=== PATIENT | male | born 1940 | race Caucasian/White ===

== ENCOUNTER 2017-01-07 18:31 | Inpatient (IN) | payer MEDICARE ==
[~2017-01-07] VITALS: Ht 175.3 cm; Wt 107.5 kg
[~2017-01-07 18:31] MED LIST: ACET325T9 PO; ASPI81TA9 PO; BISA10SU15 RC; DIGO125T PO; DOCU100T5 PO; FERR325T20 PO; LEVO50TA5 PO; LIDO700A4 TP; OXYC-323 PO; PANT40TA5 PO; PRAV40TA2 PO; PROC5TAB14 PO; TRAM50TA PO
[2017-01-07 19:16] LABS: BASO % 0 % (0-3); EOS % 0 % (0-3); HEMATOCRIT 52.7 % (39.0-53.0); HEMOGLOBIN 17.5 g/dL (13.0-17.5); LYMPH # 2.3 x10^3/uL (1.0-4.8); LYMPH % 12 % (24-48); MEAN CORPUSCULAR HEMOGLOBIN 29 pg (25-35); MEAN CORPUSCULAR HGB CONC 33 g/dL (31-37); MEAN CORPUSCULAR VOLUME 86 fL (79-100); MONO % 12 % (0-9); NEUT % 76 % (31-73); PLATELET COUNT 372 x10^3/uL (140-400); RED BLOOD COUNT 6.13 x10^6/uL (4.30-5.70); RED CELL DISTRIBUTION WIDTH 14.1 % (11.5-14.5); WHITE BLOOD COUNT 18.8 x10^3/uL (4.0-11.0)
[2017-01-07] MEDS ORDERED: IV NORMAL SALINE 500ML BAG 500 ML IV ONE (19:30)
[2017-01-07] MEDS ORDERED: ONDANSETRON PF 4 MG/2 ML VIAL. IV PRN ×2 (19:30→21:15)
[2017-01-07 19:34] LABS: CALCIUM 10.3 mg/dL (8.5-10.1); CREATININE 2.1 mg/dL (0.7-1.3); GFR 30.6; POTASSIUM 4.2 mmol/L (3.5-5.1)
[2017-01-07 19:41] LABS: ALBUMIN 4.4 g/dL (3.4-5.0); DIRECT BILIRUBIN 0.3 mg/dL (0.0-0.2); TOTAL BILIRUBIN 1.3 mg/dL (0.2-1.0); TOTAL PROTEIN 9.1 g/dL (6.4-8.2)
[2017-01-07 19:46] LABS: % BASOS 4 % (0-3)
[2017-01-07 19:48] LABS: PLT ESTIMATE INCREASED (ADEQUATE); POLYCHROMASIA SLIGHT; SCHISTOCYTES OCC; TOXIC GRANULATION SLIGHT
[2017-01-07 20:12] LABS: OBC FLU VALID
--- NOTE | 2017-01-07 20:13 | PHYS DOC ---
Past Medical History Past Medical History: CAD, High Cholesterol, Other Additional Past Medical Histor: Thyroid Past Surgical History: Coronary Bypass Surgery, Tonsillectomy, Other Additional Past Surgical Histo: Hernia, Adenoids Alcohol Use: None Drug Use: None Adult General Chief Complaint Chief Complaint: NAUSEA/VOMITING/DIARRHA HPI HPI 77-year-old male presenting to the emergency department with nausea vomiting for the last few days. He reports feeling generally weak. His vomiting is nonbilious. He describes generalized cramping abdominal pain without a focus. He denies fevers chills. He denies chest pain or shortness of breath. Onset 24- 48 hours. Duration intermittent. No alleviating or exacerbating factors present. No specific timing. Review of systems is negative for chest pain shortness of breath fevers or chills. All other review of systems is negative unless otherwise noted in history of present illness. Review of Systems Review of Systems SEE ABOVE. Current Medications Current Medications Current Medications Medications (Trade) Dose Ordered Sig/Rod Start Time Stop Time Status Last Admin Dose Admin Ondansetron HCl (Zofran) 4 mg PRN Q30MIN PRN 01/07/17 19:30 01/07/17 19:31 4 MG Sodium Chloride (Iv Sodium Chloride 0.9% 500ml Bag) 500 ml @ 500 mls/hr 1X ONCE 01/07/17 19:30 01/07/17 20:29 01/07/17 19:31 500 MLS/HR Allergies Allergies Allergies Coded Allergies Type Severity Reaction Last Updated Verified No Known Drug Allergies 01/07/17 No Physical Exam Physical Exam Constitutional: Well developed, well nourished, no acute distress, non-toxic appearance. HENT: Normocephalic, atraumatic, bilateral external ears normal, oropharynx moist, no oral exudates, nose normal. [] Eyes: PERRLA, EOMI, conjunctiva normal, no discharge. Neck: Normal range of motion, no tenderness, supple, no stridor. [] Cardiovascular:Heart rate regular rhythm, no murmur [] Lungs & Thorax: Bilateral breath sounds clear to auscultation Abdomen: Bowel sounds normal, soft, no tenderness, no masses, no pulsatile masses. [] Skin: Warm, dry, no erythema, no rash. Back: No tenderness, no CVA tenderness. Extremities: No tenderness, no cyanosis, no clubbing, ROM intact, no edema. [] Neurologic: Alert and oriented X 3, normal motor function, normal sensory function, no focal deficits noted. [] Psychologic: Affect normal, judgement normal, mood normal. [] Current Patient Data Vital Signs Vital Signs Date Time Temp Pulse Resp B/P Pulse Ox O2 Delivery O2 Flow Rate FiO2 01/07/17 18:50 96.8 99 34 162/92 93 Room Air 96.8 Lab Values Laboratory Tests Test 01/07/17 18:56 White Blood Count 18.8x10^3/uL (4.0-11.0) H Red Blood Count 6.13x10^6/uL (4.30-5.70) H Hemoglobin 17.5g/dL (13.0-17.5) Hematocrit 52.7% (39.0-53.0) Mean Corpuscular Volume 86fL (79-100) Mean Corpuscular Hemoglobin 29pg (25-35) Mean Corpuscular Hemoglobin Concent 33g/dL (31-37) Red Cell Distribution Width 14.1% (11.5-14.5) Platelet Count 372x10^3/uL (140-400) Neutrophils (%) (Auto) 76% (31-73) H Lymphocytes (%) (Auto) 12% (24-48) L Monocytes (%) (Auto) 12% (0-9) H Eosinophils (%) (Auto) 0% (0-3) Basophils (%) (Auto) 0% (0-3) Neutrophils # (Auto) 14.3x10^3uL (1.8-7.7) H Lymphocytes # (Auto) 2.3x10^3/uL (1.0-4.8) Monocytes # (Auto) 2.2x10^3/uL (0.0-1.1) H Eosinophils # (Auto) 0.0x10^3/uL (0.0-0.7) Basophils # (Auto) 0.0x10^3/uL (0.0-0.2) Segmented Neutrophils % 73% (35-66) H Lymphocytes % 16% (24-48) L Monocytes % 6% (0-10) Basophils % 4% (0-3) H Metamyelocytes % 1% (0-0) H Toxic Granulation Slight Platelet Estimate Increased (ADEQUATE) Platelet Clumps, EDTA Present Giant Platelets Occ Polychromasia Slight Schistocytes Occ Sodium Level 131mmol/L (136-145) L Potassium Level 4.2mmol/L (3.5-5.1) Chloride Level 91mmol/L (98-107) L Carbon Dioxide Level 25mmol/L (21-32) Anion Gap 15 (6-14) H Blood Urea Nitrogen 35mg/dL (8-26) H Creatinine 2.1mg/dL (0.7-1.3) H Estimated GFR (Cockcroft-Gault) 30.6 Glucose Level 222mg/dL (70-99) H Calcium Level 10.3mg/dL (8.5-10.1) H Total Bilirubin 1.3mg/dL (0.2-1.0) H Direct Bilirubin 0.3mg/dL (0.0-0.2) H Aspartate Amino Transferase (AST) 48U/L (15-37) H Alanine Aminotransferase (ALT) 74U/L (16-63) H Alkaline Phosphatase 70U/L (46-116) Troponin I Quantitative < 0.017ng/mL (0.000-0.055) UM-Sbi-F-Type Natriuretic Peptide 1023pg/mL (0-449) H Total Protein 9.1g/dL (6.4-8.2) H Albumin 4.4g/dL (3.4-5.0) Lipase 561U/L (73-393) H Laboratory Tests 01/07/17 18:56 Laboratory Tests 01/07/17 18:56 EKG EKG [] EKG shows sinus tachycardia. Intervals within normal limits. ST segments congruent. Not suggestive of ACS. Radiology/Procedures Radiology/Procedures Poor lung volumes on chest film. No obvious pneumothorax or pulmonary infiltrate present. [] Course & Med Decision Making Course & Med Decision Making Pertinent Labs and Imaging studies reviewed. (See chart for details) 77-year-old male presenting to the emergency department today with nausea vomiting and diarrhea. On examination the patient was tachycardic and afebrile. Mildly low saturation on room air. Hypertensive present. Physical exam otherwise showed nontender abdomen. IV fluids administered after IV established. Blood work obtained which showed leukocytosis with elevation in BUN and creatinine to bili low sodium elevated proBNP mildly elevated lipase. On reevaluation he was feeling a little bit better however it appears that he will benefit from more fluid resuscitation and further valuation workup and care in our hospital system. The patient was subsequently admitted. Dragon Disclaimer Dragon Disclaimer This electronic medical record was generated, in whole or in part, using a voice recognition dictation system. Departure Departure Impression: Primary Impression: Nausea vomiting and diarrhea Additional Impressions: Lactic acidosis Dehydration Uremia Disposition: ADMITTED INPATIENT Admitting Physician: Chace Bradshaw Condition: STABLE Referrals: SU RAI Jr, MD (PCP) Problem Qualifiers KASI STRICKLAND MD Jan 07, 2017 20:13
[2017-01-07 20:40] LABS: BILIRUBIN,URINE SMALL (NEG); GLUCOSE,URINE NEGATIVE (NEG); NITRITE,URINE NEGATIVE (NEG); PROTEIN,URINE NEGATIVE (NEG-TRACE); UROBILINOGEN,URINE 0.2 mg/dL (0.2 mg/dL)
[2017-01-07 20:50] LABS: BACTERIA,URINE 0 /HPF (0-FEW); RBC,URINE 0 /HPF (0-2); SQUAMOUS EPITHELIAL CELL,UR OCC /LPF; WBC,URINE OCC /HPF (0-4)
--- NOTE | 2017-01-07 20:59 | RAD ---
PQRS STATEMENT One or more of the following individualized dose reduction techniques were utilized for this study: 1.Automated exposure control. 2.Adjustment of the mA and/orkVaccording to patient size. 3.Use of iterative reconstruction technique CT ABDOMEN/PELVIS Indication:LOW ABD PAIN, HX UMBILICA HERNIA SX YEARS AGO Reason: abd pain / Spl. Instructions: BAD LABS, C- 2.1 / History: Technique: Multiple contiguous axial images were obtained through the abdomen and pelvis. Coronal reformations were created. Findings: The heart size is normal. There are dense coronary artery calcifications. Mild fibrotic changes are noted in the lung bases. Evaluation of the abdominal viscera is limited in the absence of IV contrast.The liver and spleen are normal in size. The gallbladder is nondistended. The pancreas, and adrenal glands are within normal limits. The kidneys are unremarkable. There is no abdominopelvic ascites. Abdominal aorta is normal in caliber. The stomach is significantly dilated, as is the proximal small bowel. There appears to be a transition point in the right lower quadrant to decompressed ilium. There is no pneumoperitoneum or ascites. The appendix is normal. Urinary bladder is within normal limits. No destructive osseus lesions are identified. Impression: - Findings consistent with small bowel obstruction. No evidence for hollow viscus rupture. - Normal appendix. - Dense coronary artery disease. Electronically signed by: Amadeo Last (Jan 07, 2017 20:57:55)
[2017-01-07] MEDS ORDERED: IV NORMAL SALINE 1000ML BAG 1,000 ML IV SCH (21:08)
[2017-01-07 21:15] VITALS: BP 151/90
[2017-01-07] MEDS ORDERED: PIP/TAZO PER PHARMACY MC PRN (21:15)
[2017-01-07] MEDS ORDERED: IV NORMAL SALINE 500ML BAG 500 ML IV PRN (21:15)
[2017-01-07] MEDS ORDERED: MORPHINE SULFATE 2 MG/ML DISP.SYRIN. IV PRN (21:15)
[2017-01-07] MEDS ORDERED: ONDA4TAB10 SL (21:29)
[2017-01-07 21:35] LABS: INR 2.2 (0.8-1.1)
[2017-01-07] MEDS ORDERED: VANCOMYCIN 2 GM in IV NORMAL SALINE 500ML BAG 500 ML IV ONE (22:00)
[2017-01-07] MEDS ORDERED: IV NORMAL SALINE 1000ML BAG 1,000 ML IV PRN (22:33)
[2017-01-07] MEDS: IV NORMAL SALINE 1000ML BAG 1,000 ML IV SCH (22:45)
[2017-01-07] MEDS: PIPERACILLIN/TAZOBACTAM 2.25 GM in IV NORMAL SALINE 50ML 50 ML IV SCH (22:46)
[2017-01-07 23:00] VITALS: BP 143/93
[2017-01-08] VITALS (24 sets, daily range): BP systolic 0–168; BP diastolic 0–110
[2017-01-08] MEDS: VANCOMYCIN PER PHARMACY MC PRN ×2 (00:20→13:47)
--- NOTE | 2017-01-08 00:23 | ACF ---
Admission Forms Criteria Admission Criteria Met?: Pending CHRISTIAN YOO Jan 08, 2017 00:23 KASI STRICKLAND MD Jan 13, 2017 23:29
[2017-01-08] MEDS ORDERED: IV NORMAL SALINE 1000ML BAG 1,000 ML IV ONE (03:00)
[2017-01-08] MEDS ORDERED: IV NORMAL SALINE 1000ML BAG 500 ML IV ONE (04:00)
[2017-01-08 04:19] LABS: BASO % 0 % (0-3); EOS % 0 % (0-3); HEMATOCRIT 48.2 % (39.0-53.0); HEMOGLOBIN 15.9 g/dL (13.0-17.5); LYMPH # 1.8 x10^3/uL (1.0-4.8); LYMPH % 11 % (24-48); MEAN CORPUSCULAR HEMOGLOBIN 29 pg (25-35); MEAN CORPUSCULAR HGB CONC 33 g/dL (31-37); MEAN CORPUSCULAR VOLUME 87 fL (79-100); MONO % 14 % (0-9); NEUT % 75 % (31-73); PLATELET COUNT 303 x10^3/uL (140-400); RED BLOOD COUNT 5.56 x10^6/uL (4.30-5.70); RED CELL DISTRIBUTION WIDTH 14.3 % (11.5-14.5); WHITE BLOOD COUNT 16.8 x10^3/uL (4.0-11.0)
[2017-01-08 04:34] LABS: ALBUMIN 3.4 g/dL (3.4-5.0); ALBUMIN/GLOBULIN RATIO 0.9 (1.0-1.7); CALCIUM 8.6 mg/dL (8.5-10.1); CREATININE 2.1 mg/dL (0.7-1.3); GFR 30.6; POTASSIUM 3.7 mmol/L (3.5-5.1); TOTAL BILIRUBIN 1.3 mg/dL (0.2-1.0); TOTAL PROTEIN 7.3 g/dL (6.4-8.2)
[2017-01-08] MEDS: PIPERACILLIN/TAZOBACTAM 2.25 GM in IV NORMAL SALINE 50ML 50 ML IV SCH ×2 (05:06→15:16)
[2017-01-08] MEDS: IV NORMAL SALINE 1000ML BAG 1,000 ML IV SCH (06:12)
--- NOTE | 2017-01-08 06:42 | EKG ---
[facility] [address] [place] [address] Test Date: 2017-01-07 Test Time: 19:28:15 Pat Name: ANA LILIA HAYES Department: Room: 512 1 Gender: M [employer] Machine Tender: PERICO ER : 1940 Requested By: KASI STRICKLAND Order Number: [id number] Reading MD: Yvette Jackson Measurements Intervals Williams Rate: 99 P: 29 WY: 142 QRS: -15 QRSD: 96 T: 83 QT: 362 QTc: 470 Interpretive Statements SINUS RHYTHM LEFT ATRIAL ABNORMALITY LEFTWARD AXIS QRS(T) CONTOUR ABNORMALITY CONSISTENT WITH ANTEROSEPTAL INFARCT AGE UNDETERMINED CONSISTENT WITH INFERIOR INFARCT PROBABLY OLD ST & T ABNORMALITY, CONSIDER HIGH LATERAL ISCHEMIA OR LEFT VENTRICULAR STRAIN ABNORMAL ECG Electronically Signed On 01-12-2017 15:02:39 [employer]ONE SETTER by Yvette Jackson
--- NOTE | 2017-01-08 08:07 | RAD ---
Indication weak and shortness of breath. A single view of the chest was obtained. Comparison is made to a prior examination December 17, 2014. The level of inspiratory effort is suboptimal. Heart and pulmonary vessels are within normal limits. A focal infiltrate is not seen. Significant pleural fluid is not present and there is no pneumothorax. Postoperative changes are noted. IMPRESSION: Suboptimal inspiratory effort. No definite acute or focal process seen in the chest
[2017-01-08] MEDS ORDERED: EPINEPHRINE VIAL 4 MG in IV NORMAL SALINE 250ML 250 ML IV ONE (09:30)
--- NOTE | 2017-01-08 09:34 | PDOC1 ---
History and Physical Date of Admission Date of Admission DATE: 01/08/17 TIME: 09:34 Past Medical History Cardiovascular: CAD, HTN, LA, Other GI: Constipation Past Surgical History Past Surgical History: Other Family History Family History: Family History Unknown Social History ALCOHOL: none Drugs: None Current Problem List Problem List Problems Medical Problems: (1) Dehydration Status: Acute (2) Lactic acidosis Status: Acute (3) Nausea vomiting and diarrhea Status: Acute (4) Uremia Status: Acute Problems: Current Medications Current Medications Current Medications Sodium Chloride (Iv Sodium Chloride 0.9% 500ml Bag) 500 ml @ 500 mls/hr 1X ONCE IV Last administered on 01/07/17 19:31; Start 01/07/17 at 19:30; Stop at 20:29; Status DC Ondansetron HCl (Zofran) 4 mg PRN Q30MIN PRN IV NAUSEA/VOMITING Last administered on 01/07/17 19:31; Start 01/07/17 at 19:30; Stop 01/07/17 at 23:00; Status DC Ondansetron HCl (Zofran) 4 mg PRN Q8HRS PRN IV NAUSEA/VOMITING Last administered on 01/08/17 00:42; Start 01/07/17 at 21:15; Stop 01/08/17 at 21:14 Morphine Sulfate 2 mg 2 mg PRN Q2HR PRN IV SEVERE PAIN Last administered on 01/07 23:36; Start 01/07/17 at 21:15; Stop 01/08/17 at 21:14 Sodium Chloride (Iv Sodium Chloride 0.9% 1000ml Bag) 1,000 ml @ 125 mls/hr Q8H IV Last administered on 01/08/17 06:12; Start 01/07/17 at 21:04; Stop 01/08/17 at 21:03 Vancomycin HCl (Vanco Per Pharmacy) 1 each PRN DAILY PRN MC SEE COMMENTS Last administered on 01/08/17 00:20; Start 01/07/17 at 21:15 Piperacillin Sod/ Tazobactam Sod 1 each 1 each PRN DAILY PRN MC SEE COMMENTS; Start 01/07/17 at 21:15 Vancomycin HCl 2 gm/Sodium Chloride 500 ml @ 250 mls/hr 1X ONCE IV Last administered on 2/7/17at 23:35; Start 01/07/17 at 22:00; Stop 01/07/17 at 23:59; Status DC Piperacillin Sod/ Tazobactam Sod 2.25 gm/Sodium Chloride 50 ml @ 100 mls/hr Q6HRS IV Last administered on 01/08/17 05:06; Start 01/07/17 at 21:30 Sodium Chloride 1,000 ml @ 765 mls/hr Q1H19M IV Last administered on 01/07/17 21:47; Start 01/07/17 at 21:08; Stop 01/07/17 at 22:35; Status DC Sodium Chloride 500 ml @ 1,000 mls/hr PRN Q30MIN PRN IV SEE COMMENTS; Start at 21:15 Sodium Chloride 1,000 ml @ 765 mls/hr Q1H19M PRN IV SEE COMMENTS; Start at 22:33; Status UNV Vancomycin HCl/ Sodium Chloride (Iv Sodium Chloride 0.9% 500ml Bag) 500 ml @ 250 mls/hr Q24H IV ; Start 01/08/17 at 22:00 Vancomycin HCl 1 each 1 each 1X ONCE MC ; Start 01/09/17 at 21:30; Stop 01/09/17 at 21:31 Sodium Chloride 1,000 ml @ 999 mls/hr 1X ONCE IV Last administered on 02:42; Start 01/08/17 at 03:00; Stop 01/08/17 at 04:00; Status DC Sodium Chloride (Iv Sodium Chloride 0.9% 1000ml Bag) 500 ml @ 499.445 mls/hr 1X ONCE IV Last administered on 01/08/17 02:49; Start 01/08/17 at 04:00; Stop 01/08/17 at 05:00; Status DC Active Scripts Active Reported Zofran Odt (Ondansetron) 4 Mg Tab.rapdis 1 Tab SL Q8HRS Prochlorperazine Maleate 10 Mg Tablet 25 Mg PO Q6HRS Tramadol Hcl 50 Mg Tablet 50 Mg PO Q6H PRN Levothyroxine Sodium 50 Mcg Tablet 50 Mcg PO DAILYAC Pravastatin Sodium 40 Mg Tablet 40 Mg PO DAILY Digoxin 125 Mcg Tablet 1 Tab PO DAILY Laxative Suppository (Bisacodyl) 10 Mg Supp.rect 10 Mg RC DAILY Aspirin Ec (Aspirin) 81 Mg Tablet. 1 Tab PO DAILY Allergies Allergies: Coded Allergies: No Known Drug Allergies (Unverified , 01/07/17) Vitals Vitals Vital Signs Date Time Temp Pulse Resp B/P Pulse Ox O2 Delivery O2 Flow Rate FiO2 01/08/17 03:00 96.3 112 20 154/96 92 Room Air 96.3 Labs Labs Laboratory Tests Test 01/07/17 18:56 01/07/17 19:44 01/07/17 20:12 01/07/17 20:32 White Blood Count 18.8x10^3/uL (4.0-11.0) Red Blood Count 6.13x10^6/uL (4.30-5.70) Hemoglobin 17.5g/dL (13.0-17.5) Hematocrit 52.7% (39.0-53.0) Mean Corpuscular Volume 86fL (79-100) Mean Corpuscular Hemoglobin 29pg (25-35) Mean Corpuscular Hemoglobin Concent 33g/dL (31-37) Red Cell Distribution Width 14.1% (11.5-14.5) Platelet Count 372x10^3/uL (140-400) Neutrophils (%) (Auto) 76% (31-73) Lymphocytes (%) (Auto) 12% (24-48) Monocytes (%) (Auto) 12% (0-9) Eosinophils (%) (Auto) 0% (0-3) Basophils (%) (Auto) 0% (0-3) Neutrophils # (Auto) 14.3x10^3uL (1.8-7.7) Lymphocytes # (Auto) 2.3x10^3/uL (1.0-4.8) Monocytes # (Auto) 2.2x10^3/uL (0.0-1.1) Eosinophils # (Auto) 0.0x10^3/uL (0.0-0.7) Basophils # (Auto) 0.0x10^3/uL (0.0-0.2) Segmented Neutrophils % 73% (35-66) Lymphocytes % 16% (24-48) Monocytes % 6% (0-10) Basophils % 4% (0-3) Metamyelocytes % 1% (0-0) Toxic Granulation Slight Platelet Estimate Increased (ADEQUATE) Platelet Clumps, EDTA Present Giant Platelets Occ Polychromasia Slight Schistocytes Occ Prothrombin Time 23.0SEC (11.7-14.0) Prothromb Time International Ratio 2.2 (0.8-1.1) Activated Partial Thromboplast Time 45SEC (24-38) Sodium Level 131mmol/L (136-145) Potassium Level 4.2mmol/L (3.5-5.1) Chloride Level 91mmol/L (98-107) Carbon Dioxide Level 25mmol/L (21-32) Anion Gap 15 (6-14) Blood Urea Nitrogen 35mg/dL (8-26) Creatinine 2.1mg/dL (0.7-1.3) Estimated GFR (Cockcroft-Gault) 30.6 Glucose Level 222mg/dL (70-99) Lactic Acid Level 5.6mmol/L (0.4-2.0) 5.6mmol/L (0.4-2.0) Calcium Level 10.3mg/dL (8.5-10.1) Total Bilirubin 1.3mg/dL (0.2-1.0) Direct Bilirubin 0.3mg/dL (0.0-0.2) Aspartate Amino Transf (AST/SGOT) 48U/L (15-37) Alanine Aminotransferase (ALT/SGPT) 74U/L (16-63) Alkaline Phosphatase 70U/L (46-116) Troponin I Quantitative < 0.017ng/mL (0.000-0.055) DT-Occ-M-Type Natriuretic Peptide 1023pg/mL (0-449) Total Protein 9.1g/dL (6.4-8.2) Albumin 4.4g/dL (3.4-5.0) Lipase 561U/L (73-393) Procalcitonin 0.79ng/mL (0.00-0.10) Influenza Type A Antigen Negative (NEGATIVE) Influenza Type B Antigen Negative (NEGATIVE) Urine Color Chhaya Urine Clarity Clear Urine pH 5.0 Urine Specific [place] 1.020 Urine Protein Negativemg/dL (NEG-TRACE) Urine Glucose (UA) Negativemg/dL (NEG) Urine Ketones (Stick) 15mg/dL (NEG) Urine Blood Negative (NEG) Urine Nitrite Negative (NEG) Urine Bilirubin Small (NEG) Urine Urobilinogen Dipstick 0.2mg/dL (0.2 mg/dL) Urine Leukocyte Esterase Negative (NEG) Urine RBC 0/HPF (0-2) Urine WBC Occ/HPF (0-4) Urine Squamous Epithelial Cells Occ/LPF Urine Amorphous Sediment Present/HPF Urine Bacteria 0/HPF (0-FEW) Urine Hyaline Casts Occasional/HPF Test 01/08/17 00:17 01/08/17 03:24 Lactic Acid Level 5.4mmol/L (0.4-2.0) White Blood Count 16.8x10^3/uL (4.0-11.0) Red Blood Count 5.56x10^6/uL (4.30-5.70) Hemoglobin 15.9g/dL (13.0-17.5) Hematocrit 48.2% (39.0-53.0) Mean Corpuscular Volume 87fL (79-100) Mean Corpuscular Hemoglobin 29pg (25-35) Mean Corpuscular Hemoglobin Concent 33g/dL (31-37) Red Cell Distribution Width 14.3% (11.5-14.5) Platelet Count 303x10^3/uL (140-400) Neutrophils (%) (Auto) 75% (31-73) Lymphocytes (%) (Auto) 11% (24-48) Monocytes (%) (Auto) 14% (0-9) Eosinophils (%) (Auto) 0% (0-3) Basophils (%) (Auto) 0% (0-3) Neutrophils # (Auto) 12.6x10^3uL (1.8-7.7) Lymphocytes # (Auto) 1.8x10^3/uL (1.0-4.8) Monocytes # (Auto) 2.4x10^3/uL (0.0-1.1) Eosinophils # (Auto) 0.0x10^3/uL (0.0-0.7) Basophils # (Auto) 0.0x10^3/uL (0.0-0.2) Sodium Level 134mmol/L (136-145) Potassium Level 3.7mmol/L (3.5-5.1) Chloride Level 96mmol/L (98-107) Carbon Dioxide Level 22mmol/L (21-32) Anion Gap 16 (6-14) Blood Urea Nitrogen 40mg/dL (8-26) Creatinine 2.1mg/dL (0.7-1.3) Estimated GFR (Cockcroft-Gault) 30.6 BUN/Creatinine Ratio 19 (6-20) Glucose Level 190mg/dL (70-99) Calcium Level 8.6mg/dL (8.5-10.1) Total Bilirubin 1.3mg/dL (0.2-1.0) Aspartate Amino Transf (AST/SGOT) 34U/L (15-37) Alanine Aminotransferase (ALT/SGPT) 59U/L (16-63) Alkaline Phosphatase 57U/L (46-116) Total Protein 7.3g/dL (6.4-8.2) Albumin 3.4g/dL (3.4-5.0) Albumin/Globulin Ratio 0.9 (1.0-1.7) Laboratory Tests Test 01/07/17 18:56 01/07/17 19:44 01/07/17 20:12 01/07/17 20:32 White Blood Count 18.8x10^3/uL (4.0-11.0) Red Blood Count 6.13x10^6/uL (4.30-5.70) Hemoglobin 17.5g/dL (13.0-17.5) Hematocrit 52.7% (39.0-53.0) Mean Corpuscular Volume 86fL (79-100) Mean Corpuscular Hemoglobin 29pg (25-35) Mean Corpuscular Hemoglobin Concent 33g/dL (31-37) Red Cell Distribution Width 14.1% (11.5-14.5) Platelet Count 372x10^3/uL (140-400) Neutrophils (%) (Auto) 76% (31-73) Lymphocytes (%) (Auto) 12% (24-48) Monocytes (%) (Auto) 12% (0-9) Eosinophils (%) (Auto) 0% (0-3) Basophils (%) (Auto) 0% (0-3) Neutrophils # (Auto) 14.3x10^3uL (1.8-7.7) Lymphocytes # (Auto) 2.3x10^3/uL (1.0-4.8) Monocytes # (Auto) 2.2x10^3/uL (0.0-1.1) Eosinophils # (Auto) 0.0x10^3/uL (0.0-0.7) Basophils # (Auto) 0.0x10^3/uL (0.0-0.2) Segmented Neutrophils % 73% (35-66) Lymphocytes % 16% (24-48) Monocytes % 6% (0-10) Basophils % 4% (0-3) Metamyelocytes % 1% (0-0) Toxic Granulation Slight Platelet Estimate Increased (ADEQUATE) Platelet Clumps, EDTA Present Giant Platelets Occ Polychromasia Slight Schistocytes Occ Prothrombin Time 23.0SEC (11.7-14.0) Prothromb Time International Ratio 2.2 (0.8-1.1) Activated Partial Thromboplast Time 45SEC (24-38) Sodium Level 131mmol/L (136-145) Potassium Level 4.2mmol/L (3.5-5.1) Chloride Level 91mmol/L (98-107) Carbon Dioxide Level 25mmol/L (21-32) Anion Gap 15 (6-14) Blood Urea Nitrogen 35mg/dL (8-26) Creatinine 2.1mg/dL (0.7-1.3) Estimated GFR (Cockcroft-Gault) 30.6 Glucose Level 222mg/dL (70-99) Lactic Acid Level 5.6mmol/L (0.4-2.0) 5.6mmol/L (0.4-2.0) Calcium Level 10.3mg/dL (8.5-10.1) Total Bilirubin 1.3mg/dL (0.2-1.0) Direct Bilirubin 0.3mg/dL (0.0-0.2) Aspartate Amino Transf (AST/SGOT) 48U/L (15-37) Alanine Aminotransferase (ALT/SGPT) 74U/L (16-63) Alkaline Phosphatase 70U/L (46-116) Troponin I Quantitative < 0.017ng/mL (0.000-0.055) SA-Wzj-N-Type Natriuretic Peptide 1023pg/mL (0-449) Total Protein 9.1g/dL (6.4-8.2) Albumin 4.4g/dL (3.4-5.0) Lipase 561U/L (73-393) Procalcitonin 0.79ng/mL (0.00-0.10) Influenza Type A Antigen Negative (NEGATIVE) Influenza Type B Antigen Negative (NEGATIVE) Urine Color Chhaya Urine Clarity Clear Urine pH 5.0 Urine Specific [place] 1.020 Urine Protein Negativemg/dL (NEG-TRACE) Urine Glucose (UA) Negativemg/dL (NEG) Urine Ketones (Stick) 15mg/dL (NEG) Urine Blood Negative (NEG) Urine Nitrite Negative (NEG) Urine Bilirubin Small (NEG) Urine Urobilinogen Dipstick 0.2mg/dL (0.2 mg/dL) Urine Leukocyte Esterase Negative (NEG) Urine RBC 0/HPF (0-2) Urine WBC Occ/HPF (0-4) Urine Squamous Epithelial Cells Occ/LPF Urine Amorphous Sediment Present/HPF Urine Bacteria 0/HPF (0-FEW) Urine Hyaline Casts Occasional/HPF Test 01/08/17 00:17 01/08/17 03:24 Lactic Acid Level 5.4mmol/L (0.4-2.0) White Blood Count 16.8x10^3/uL (4.0-11.0) Red Blood Count 5.56x10^6/uL (4.30-5.70) Hemoglobin 15.9g/dL (13.0-17.5) Hematocrit 48.2% (39.0-53.0) Mean Corpuscular Volume 87fL (79-100) Mean Corpuscular Hemoglobin 29pg (25-35) Mean Corpuscular Hemoglobin Concent 33g/dL (31-37) Red Cell Distribution Width 14.3% (11.5-14.5) Platelet Count 303x10^3/uL (140-400) Neutrophils (%) (Auto) 75% (31-73) Lymphocytes (%) (Auto) 11% (24-48) Monocytes (%) (Auto) 14% (0-9) Eosinophils (%) (Auto) 0% (0-3) Basophils (%) (Auto) 0% (0-3) Neutrophils # (Auto) 12.6x10^3uL (1.8-7.7) Lymphocytes # (Auto) 1.8x10^3/uL (1.0-4.8) Monocytes # (Auto) 2.4x10^3/uL (0.0-1.1) Eosinophils # (Auto) 0.0x10^3/uL (0.0-0.7) Basophils # (Auto) 0.0x10^3/uL (0.0-0.2) Sodium Level 134mmol/L (136-145) Potassium Level 3.7mmol/L (3.5-5.1) Chloride Level 96mmol/L (98-107) Carbon Dioxide Level 22mmol/L (21-32) Anion Gap 16 (6-14) Blood Urea Nitrogen 40mg/dL (8-26) Creatinine 2.1mg/dL (0.7-1.3) Estimated GFR (Cockcroft-Gault) 30.6 BUN/Creatinine Ratio 19 (6-20) Glucose Level 190mg/dL (70-99) Calcium Level 8.6mg/dL (8.5-10.1) Total Bilirubin 1.3mg/dL (0.2-1.0) Aspartate Amino Transf (AST/SGOT) 34U/L (15-37) Alanine Aminotransferase (ALT/SGPT) 59U/L (16-63) Alkaline Phosphatase 57U/L (46-116) Total Protein 7.3g/dL (6.4-8.2) Albumin 3.4g/dL (3.4-5.0) Albumin/Globulin Ratio 0.9 (1.0-1.7) VTE Prophylaxis Ordered VTE Prophylaxis Devices: Yes GAYE WHITE MD Jan 08, 2017 09:34
--- NOTE | 2017-01-08 09:42 | PDOC1 ---
History and Physical Date of Admission Date of Admission DATE: 01/08/17 TIME: 09:34 Identification/Chief Complaint Chief Complaint nausea and vomiting Source Source: Chart review, Patient History of Present Illness History of Present Illness PER ER note, a 77-year-old male admit w nausea vomiting for the last few days. felt weak CT scan showed SBO, pt did drink some sprite this AM, RN reported that he was alert, conversant, and complained of back pain and abd bloating this AM, he was 1 person assist drank some Sprite, then vomited, nausea, was found pulseless and not breathing copious fluid from nose and mouth, bed covered in vomit. Agressive suction and bagged until Dr. Aquino intubated successfull. No pulse for a few minutes, compressions, EPI, atropine for Pulse 60, fluid and bicarb, and pulse returned Past Medical History Cardiovascular: CAD, HTN, [place], Other GI: Constipation Past Surgical History Past Surgical History: Other Family History Family History: Family History Unknown Social History ALCOHOL: none Drugs: None Current Problem List Problem List Problems Medical Problems: (1) Dehydration Status: Acute (2) Lactic acidosis Status: Acute (3) Nausea vomiting and diarrhea Status: Acute (4) Uremia Status: Acute Problems: Current Medications Current Medications Current Medications Sodium Chloride (Iv Sodium Chloride 0.9% 500ml Bag) 500 ml @ 500 mls/hr 1X ONCE IV Last administered on 01/07/17 19:31; Start 01/07/17 at 19:30; Stop at 20:29; Status DC Ondansetron HCl (Zofran) 4 mg PRN Q30MIN PRN IV NAUSEA/VOMITING Last administered on 01/07/17 19:31; Start 01/07/17 at 19:30; Stop 01/07/17 at 23:00; Status DC Ondansetron HCl (Zofran) 4 mg PRN Q8HRS PRN IV NAUSEA/VOMITING Last administered on 01/08/17 00:42; Start 01/07/17 at 21:15; Stop 01/08/17 at 21:14 Morphine Sulfate 2 mg 2 mg PRN Q2HR PRN IV SEVERE PAIN Last administered on 01/07 23:36; Start 01/07/17 at 21:15; Stop 01/08/17 at 21:14 Sodium Chloride (Iv Sodium Chloride 0.9% 1000ml Bag) 1,000 ml @ 125 mls/hr Q8H IV Last administered on 01/08/17 06:12; Start 01/07/17 at 21:04; Stop 01/08/17 at 21:03 Vancomycin HCl (Vanco Per Pharmacy) 1 each PRN DAILY PRN MC SEE COMMENTS Last administered on 01/08/17 00:20; Start 01/07/17 at 21:15 Piperacillin Sod/ Tazobactam Sod 1 each 1 each PRN DAILY PRN MC SEE COMMENTS; Start 01/07/17 at 21:15 Vancomycin HCl 2 gm/Sodium Chloride 500 ml @ 250 mls/hr 1X ONCE IV Last administered on 01/07/17 23:35; Start 01/07/17 at 22:00; Stop 01/07/17 at 23:59; Status DC Piperacillin Sod/ Tazobactam Sod 2.25 gm/Sodium Chloride 50 ml @ 100 mls/hr Q6HRS IV Last administered on 01/08/17 05:06; Start 01/07/17 at 21:30 Sodium Chloride 1,000 ml @ 765 mls/hr Q1H19M IV Last administered on 01/07/17 21:47; Start 01/07/17 at 21:08; Stop 01/07/17 at 22:35; Status DC Sodium Chloride 500 ml @ 1,000 mls/hr PRN Q30MIN PRN IV SEE COMMENTS; Start at 21:15 Sodium Chloride 1,000 ml @ 765 mls/hr Q1H19M PRN IV SEE COMMENTS; Start at 22:33; Status UNV Vancomycin HCl/ Sodium Chloride (Iv Sodium Chloride 0.9% 500ml Bag) 500 ml @ 250 mls/hr Q24H IV ; Start 01/08/17 at 22:00 Vancomycin HCl 1 each 1 each 1X ONCE MC ; Start 01/09/17 at 21:30; Stop 01/09/17 at 21:31 Sodium Chloride 1,000 ml @ 999 mls/hr 1X ONCE IV Last administered on 02:42; Start 01/08/17 at 03:00; Stop 01/08/17 at 04:00; Status DC Sodium Chloride (Iv Sodium Chloride 0.9% 1000ml Bag) 500 ml @ 499.445 mls/hr 1X ONCE IV Last administered on 01/08/17t 02:49; Start 01/08/17 at 04:00; Stop 01/08/17 at 05:00; Status DC Active Scripts Active Reported Zofran Odt (Ondansetron) 4 Mg Tab.rapdis 1 Tab SL Q8HRS Prochlorperazine Maleate 10 Mg Tablet 25 Mg PO Q6HRS Tramadol Hcl 50 Mg Tablet 50 Mg PO Q6H PRN Levothyroxine Sodium 50 Mcg Tablet 50 Mcg PO DAILYAC Pravastatin Sodium 40 Mg Tablet 40 Mg PO DAILY Digoxin 125 Mcg Tablet 1 Tab PO DAILY Laxative Suppository (Bisacodyl) 10 Mg Supp.rect 10 Mg RC DAILY Aspirin Ec (Aspirin) 81 Mg Tablet.dr 1 Tab PO DAILY Allergies Allergies: Coded Allergies: No Known Drug Allergies (Unverified , 01/07/17) ROS Review of System unable Physical Exam Physical Exam unresponsive and pulsless at 0915 General: Other (pulseless) HEENT: Other (pupils reacitve, no icterus) Lungs: Other (rales, coarse, ) Abdomen: Other (distended, obese, scant bowel sounds) Extremities: No edema Skin: No rashes, No breakdown Neuro: Other Psych/Mental Status: Other (not responsive) Vitals Vitals Vital Signs Date Time Temp Pulse Resp B/P Pulse Ox O2 Delivery O2 Flow Rate FiO2 01/08/17 03:00 96.3 112 20 154/96 92 Room Air 96.3 Labs Labs Laboratory Tests Test 01/07/17 18:56 01/07/17 19:44 01/07/17 20:12 01/07/17 20:32 White Blood Count 18.8x10^3/uL (4.0-11.0) Red Blood Count 6.13x10^6/uL (4.30-5.70) Hemoglobin 17.5g/dL (13.0-17.5) Hematocrit 52.7% (39.0-53.0) Mean Corpuscular Volume 86fL (79-100) Mean Corpuscular Hemoglobin 29pg (25-35) Mean Corpuscular Hemoglobin Concent 33g/dL (31-37) Red Cell Distribution Width 14.1% (11.5-14.5) Platelet Count 372x10^3/uL (140-400) Neutrophils (%) (Auto) 76% (31-73) Lymphocytes (%) (Auto) 12% (24-48) Monocytes (%) (Auto) 12% (0-9) Eosinophils (%) (Auto) 0% (0-3) Basophils (%) (Auto) 0% (0-3) Neutrophils # (Auto) 14.3x10^3uL (1.8-7.7) Lymphocytes # (Auto) 2.3x10^3/uL (1.0-4.8) Monocytes # (Auto) 2.2x10^3/uL (0.0-1.1) Eosinophils # (Auto) 0.0x10^3/uL (0.0-0.7) Basophils # (Auto) 0.0x10^3/uL (0.0-0.2) Segmented Neutrophils % 73% (35-66) Lymphocytes % 16% (24-48) Monocytes % 6% (0-10) Basophils % 4% (0-3) Metamyelocytes % 1% (0-0) Toxic Granulation Slight Platelet Estimate Increased (ADEQUATE) Platelet Clumps, EDTA Present Giant Platelets Occ Polychromasia Slight Schistocytes Occ Prothrombin Time 23.0SEC (11.7-14.0) Prothromb Time International Ratio 2.2 (0.8-1.1) Activated Partial Thromboplast Time 45SEC (24-38) Sodium Level 131mmol/L (136-145) Potassium Level 4.2mmol/L (3.5-5.1) Chloride Level 91mmol/L (98-107) Carbon Dioxide Level 25mmol/L (21-32) Anion Gap 15 (6-14) Blood Urea Nitrogen 35mg/dL (8-26) Creatinine 2.1mg/dL (0.7-1.3) Estimated GFR (Cockcroft-Gault) 30.6 Glucose Level 222mg/dL (70-99) Lactic Acid Level 5.6mmol/L (0.4-2.0) 5.6mmol/L (0.4-2.0) Calcium Level 10.3mg/dL (8.5-10.1) Total Bilirubin 1.3mg/dL (0.2-1.0) Direct Bilirubin 0.3mg/dL (0.0-0.2) Aspartate Amino Transf (AST/SGOT) 48U/L (15-37) Alanine Aminotransferase (ALT/SGPT) 74U/L (16-63) Alkaline Phosphatase 70U/L (46-116) Troponin I Quantitative < 0.017ng/mL (0.000-0.055) GQ-Gqn-V-Type Natriuretic Peptide 1023pg/mL (0-449) Total Protein 9.1g/dL (6.4-8.2) Albumin 4.4g/dL (3.4-5.0) Lipase 561U/L (73-393) Procalcitonin 0.79ng/mL (0.00-0.10) Influenza Type A Antigen Negative (NEGATIVE) Influenza Type B Antigen Negative (NEGATIVE) Urine Color Chhaya Urine Clarity Clear Urine pH 5.0 Urine Specific [place] 1.020 Urine Protein Negativemg/dL (NEG-TRACE) Urine Glucose (UA) Negativemg/dL (NEG) Urine Ketones (Stick) 15mg/dL (NEG) Urine Blood Negative (NEG) Urine Nitrite Negative (NEG) Urine Bilirubin Small (NEG) Urine Urobilinogen Dipstick 0.2mg/dL (0.2 mg/dL) Urine Leukocyte Esterase Negative (NEG) Urine RBC 0/HPF (0-2) Urine WBC Occ/HPF (0-4) Urine Squamous Epithelial Cells Occ/LPF Urine Amorphous Sediment Present/HPF Urine Bacteria 0/HPF (0-FEW) Urine Hyaline Casts Occasional/HPF Test 01/08/17 00:17 01/08/17 03:24 Lactic Acid Level 5.4mmol/L (0.4-2.0) White Blood Count 16.8x10^3/uL (4.0-11.0) Red Blood Count 5.56x10^6/uL (4.30-5.70) Hemoglobin 15.9g/dL (13.0-17.5) Hematocrit 48.2% (39.0-53.0) Mean Corpuscular Volume 87fL (79-100) Mean Corpuscular Hemoglobin 29pg (25-35) Mean Corpuscular Hemoglobin Concent 33g/dL (31-37) Red Cell Distribution Width 14.3% (11.5-14.5) Platelet Count 303x10^3/uL (140-400) Neutrophils (%) (Auto) 75% (31-73) Lymphocytes (%) (Auto) 11% (24-48) Monocytes (%) (Auto) 14% (0-9) Eosinophils (%) (Auto) 0% (0-3) Basophils (%) (Auto) 0% (0-3) Neutrophils # (Auto) 12.6x10^3uL (1.8-7.7) Lymphocytes # (Auto) 1.8x10^3/uL (1.0-4.8) Monocytes # (Auto) 2.4x10^3/uL (0.0-1.1) Eosinophils # (Auto) 0.0x10^3/uL (0.0-0.7) Basophils # (Auto) 0.0x10^3/uL (0.0-0.2) Sodium Level 134mmol/L (136-145) Potassium Level 3.7mmol/L (3.5-5.1) Chloride Level 96mmol/L (98-107) Carbon Dioxide Level 22mmol/L (21-32) Anion Gap 16 (6-14) Blood Urea Nitrogen 40mg/dL (8-26) Creatinine 2.1mg/dL (0.7-1.3) Estimated GFR (Cockcroft-Gault) 30.6 BUN/Creatinine Ratio 19 (6-20) Glucose Level 190mg/dL (70-99) Calcium Level 8.6mg/dL (8.5-10.1) Total Bilirubin 1.3mg/dL (0.2-1.0) Aspartate Amino Transf (AST/SGOT) 34U/L (15-37) Alanine Aminotransferase (ALT/SGPT) 59U/L (16-63) Alkaline Phosphatase 57U/L (46-116) Total Protein 7.3g/dL (6.4-8.2) Albumin 3.4g/dL (3.4-5.0) Albumin/Globulin Ratio 0.9 (1.0-1.7) Laboratory Tests Test 01/07/17 18:56 01/07/17 19:44 01/07/17 20:12 01/07/17 20:32 White Blood Count 18.8x10^3/uL (4.0-11.0) Red Blood Count 6.13x10^6/uL (4.30-5.70) Hemoglobin 17.5g/dL (13.0-17.5) Hematocrit 52.7% (39.0-53.0) Mean Corpuscular Volume 86fL (79-100) Mean Corpuscular Hemoglobin 29pg (25-35) Mean Corpuscular Hemoglobin Concent 33g/dL (31-37) Red Cell Distribution Width 14.1% (11.5-14.5) Platelet Count 372x10^3/uL (140-400) Neutrophils (%) (Auto) 76% (31-73) Lymphocytes (%) (Auto) 12% (24-48) Monocytes (%) (Auto) 12% (0-9) Eosinophils (%) (Auto) 0% (0-3) Basophils (%) (Auto) 0% (0-3) Neutrophils # (Auto) 14.3x10^3uL (1.8-7.7) Lymphocytes # (Auto) 2.3x10^3/uL (1.0-4.8) Monocytes # (Auto) 2.2x10^3/uL (0.0-1.1) Eosinophils # (Auto) 0.0x10^3/uL (0.0-0.7) Basophils # (Auto) 0.0x10^3/uL (0.0-0.2) Segmented Neutrophils % 73% (35-66) Lymphocytes % 16% (24-48) Monocytes % 6% (0-10) Basophils % 4% (0-3) Metamyelocytes % 1% (0-0) Toxic Granulation Slight Platelet Estimate Increased (ADEQUATE) Platelet Clumps, EDTA Present Giant Platelets Occ Polychromasia Slight Schistocytes Occ Prothrombin Time 23.0SEC (11.7-14.0) Prothromb Time International Ratio 2.2 (0.8-1.1) Activated Partial Thromboplast Time 45SEC (24-38) Sodium Level 131mmol/L (136-145) Potassium Level 4.2mmol/L (3.5-5.1) Chloride Level 91mmol/L (98-107) Carbon Dioxide Level 25mmol/L (21-32) Anion Gap 15 (6-14) Blood Urea Nitrogen 35mg/dL (8-26) Creatinine 2.1mg/dL (0.7-1.3) Estimated GFR (Cockcroft-Gault) 30.6 Glucose Level 222mg/dL (70-99) Lactic Acid Level 5.6mmol/L (0.4-2.0) 5.6mmol/L (0.4-2.0) Calcium Level 10.3mg/dL (8.5-10.1) Total Bilirubin 1.3mg/dL (0.2-1.0) Direct Bilirubin 0.3mg/dL (0.0-0.2) Aspartate Amino Transf (AST/SGOT) 48U/L (15-37) Alanine Aminotransferase (ALT/SGPT) 74U/L (16-63) Alkaline Phosphatase 70U/L (46-116) Troponin I Quantitative < 0.017ng/mL (0.000-0.055) VB-Ycj-P-Type Natriuretic Peptide 1023pg/mL (0-449) Total Protein 9.1g/dL (6.4-8.2) Albumin 4.4g/dL (3.4-5.0) Lipase 561U/L (73-393) Procalcitonin 0.79ng/mL (0.00-0.10) Influenza Type A Antigen Negative (NEGATIVE) Influenza Type B Antigen Negative (NEGATIVE) Urine Color Chhaya Urine Clarity Clear Urine pH 5.0 Urine Specific [place] 1.020 Urine Protein Negativemg/dL (NEG-TRACE) Urine Glucose (UA) Negativemg/dL (NEG) Urine Ketones (Stick) 15mg/dL (NEG) Urine Blood Negative (NEG) Urine Nitrite Negative (NEG) Urine Bilirubin Small (NEG) Urine Urobilinogen Dipstick 0.2mg/dL (0.2 mg/dL) Urine Leukocyte Esterase Negative (NEG) Urine RBC 0/HPF (0-2) Urine WBC Occ/HPF (0-4) Urine Squamous Epithelial Cells Occ/LPF Urine Amorphous Sediment Present/HPF Urine Bacteria 0/HPF (0-FEW) Urine Hyaline Casts Occasional/HPF Test 01/08/17 00:17 01/08/17 03:24 Lactic Acid Level 5.4mmol/L (0.4-2.0) White Blood Count 16.8x10^3/uL (4.0-11.0) Red Blood Count 5.56x10^6/uL (4.30-5.70) Hemoglobin 15.9g/dL (13.0-17.5) Hematocrit 48.2% (39.0-53.0) Mean Corpuscular Volume 87fL (79-100) Mean Corpuscular Hemoglobin 29pg (25-35) Mean Corpuscular Hemoglobin Concent 33g/dL (31-37) Red Cell Distribution Width 14.3% (11.5-14.5) Platelet Count 303x10^3/uL (140-400) Neutrophils (%) (Auto) 75% (31-73) Lymphocytes (%) (Auto) 11% (24-48) Monocytes (%) (Auto) 14% (0-9) Eosinophils (%) (Auto) 0% (0-3) Basophils (%) (Auto) 0% (0-3) Neutrophils # (Auto) 12.6x10^3uL (1.8-7.7) Lymphocytes # (Auto) 1.8x10^3/uL (1.0-4.8) Monocytes # (Auto) 2.4x10^3/uL (0.0-1.1) Eosinophils # (Auto) 0.0x10^3/uL (0.0-0.7) Basophils # (Auto) 0.0x10^3/uL (0.0-0.2) Sodium Level 134mmol/L (136-145) Potassium Level 3.7mmol/L (3.5-5.1) Chloride Level 96mmol/L (98-107) Carbon Dioxide Level 22mmol/L (21-32) Anion Gap 16 (6-14) Blood Urea Nitrogen 40mg/dL (8-26) Creatinine 2.1mg/dL (0.7-1.3) Estimated GFR (Cockcroft-Gault) 30.6 BUN/Creatinine Ratio 19 (6-20) Glucose Level 190mg/dL (70-99) Calcium Level 8.6mg/dL (8.5-10.1) Total Bilirubin 1.3mg/dL (0.2-1.0) Aspartate Amino Transf (AST/SGOT) 34U/L (15-37) Alanine Aminotransferase (ALT/SGPT) 59U/L (16-63) Alkaline Phosphatase 57U/L (46-116) Total Protein 7.3g/dL (6.4-8.2) Albumin 3.4g/dL (3.4-5.0) Albumin/Globulin Ratio 0.9 (1.0-1.7) VTE Prophylaxis Ordered VTE Prophylaxis Devices: Yes VTE Pharmacological Prophylaxi: No Assessment/Plan Assessment/Plan Nausea and vomiting small bowel obstruction, NG tube ordered, lactic acidosis Acute aspiration pneumonia, pneumonitis respiratory failure causing code blue, resuscitation CAD, s/p CABG obesity, BMI 35 admitted to 512, code this AM 0915 to ICU 113 consult PULM, gen surg, GI, ID CKD 4, consult renal ICU admit, 50 min GAYE WHITE MD Jan 08, 2017 09:42
[2017-01-08] MEDS ORDERED: DEXTROSE 50% 25 GM / 50ML DISP.SYRIN. IV PRN (10:00)
--- NOTE | 2017-01-08 10:01 | PDOC2 ---
PALLIATIVE CARE Palliative Care Note Palliative Care Consult requested by Dr. Good to assist with patient post code blue and to assist with family support and goals of care Information obtained from medical record Diagnosis; admitted with dehydration, lactic acidosis, nausea, vomiting, diarrhea, uremia Patient out of bed this am with one assist. Jason Walker. Daughter Sarah here at that time. Patient found unresponsive without pulse, respirations S/P code blue--patient had vomited. no pulse, no respirations. 0920 Daughter Sarah called Intubated. Vent 100% Patient transferred to ICU post code. 1015 Family here. updated on condition. ZACHARY RIVAS Jan 08, 2017 10:01
[2017-01-08 10:23] LABS: HCO3 ABG 14 mmol/L (21-28); PO2 ABG 137 mmHg (65-108); SAT O2 ABG 97 % (92-99)
[2017-01-08 10:24] LABS: FIO2 ABG 100; PCO2 ABG 69 mmHg (35-46); PH ABG 6.93 (7.35-7.45)
[2017-01-08] MEDS ORDERED: LIDOCAINE 1% / SOD BICARB 8.4% 20 ML VIAL. IJ ONE (10:30)
--- NOTE | 2017-01-08 10:48 | PDOC ---
BRIEF OPERATIVE NOTE Post-Op Diagnosis cardiopulmonary arrest Procedure Performed L IJ central line Surgeon Carmen Anesthesia Type: Local Findings triple lumen left IJ central line Complications no immediate SHELLI SCHWARTZ MD Jan 08, 2017 10:48
[2017-01-08] MEDS ORDERED: MIDAZOLAM PREMIX 100 ML IV ONE (10:56)
--- NOTE | 2017-01-08 11:08 | RAD ---
Indication Central line placement. Single view of the chest was obtained and is compared to a study one day earlier. Postoperative changes are noted. Endotracheal tube is appropriately positioned above the daisy. Left IJ catheter is noted with its tip in the proximal SVC. There are now bilateral patchy infiltrates not seen previously. Findings likely reflect the interval development of mild pulmonary edema. Pneumonia is not entirely excluded. No pneumothorax is seen. IMPRESSION: Appropriately positioned endotracheal tube and left IJ catheter. Bilateral pulmonary infiltrates, new relative to the prior study. No pneumothorax seen
--- NOTE | 2017-01-08 11:13 | PDOC ---
Provider Note Provider Note dictated FLORES ANDERSON MD Jan 08, 2017 11:13
[2017-01-08] MEDS ORDERED: NOREPINEPHRINE 8 MG in IV NORMAL SALINE 250 ML IV PRN (11:15)
[2017-01-08] MEDS ORDERED: NOREPINEPHRINE VIAL 8 MG in IV NORMAL SALINE 250ML 250 ML IV PRN (11:15)
--- NOTE | 2017-01-08 11:19 | PDOC ---
Infectious Disease Note ROS ROS GEN: Denies fevers, chills, sweats HEENT: Denies blurred vision, sore throat CV: Denies chest pain RESP: Denies shortness of air, cough GI: Denies n/v/d NEURO: Denies confusion, dizziness MSK: Denies weakness, joint pain/swelling Vital Sign Vital Signs Vital Signs Date Time Temp Pulse Resp B/P Pulse Ox O2 Delivery O2 Flow Rate FiO2 01/08/17 09:50 96 Ventilator 01/08/17 07:00 97.9 120 20 168/110 97.9 Physical Exam PHYSICAL EXAM GENERAL: NAD, Alert HEENT: PERRL, OC/OP NECK: Supple, no JVD, no LN LUNGS: Clear HEART: S1S2, no gallop, no murmur ABD: Soft, NT, no organomegaly, no rebound EXT: No edema, no cyanosis COMMODITIES REQUIREMENTS ANALYST: Alert, oriented x 3, no focal neurologic deficit SKIN: No rash IV: ok Labs Lab Laboratory Tests Test 01/07/17 18:56 01/07/17 19:44 01/07/17 20:12 01/07/17 20:32 White Blood Count 18.8x10^3/uL (4.0-11.0) Red Blood Count 6.13x10^6/uL (4.30-5.70) Hemoglobin 17.5g/dL (13.0-17.5) Hematocrit 52.7% (39.0-53.0) Mean Corpuscular Volume 86fL (79-100) Mean Corpuscular Hemoglobin 29pg (25-35) Mean Corpuscular Hemoglobin Concent 33g/dL (31-37) Red Cell Distribution Width 14.1% (11.5-14.5) Platelet Count 372x10^3/uL (140-400) Neutrophils (%) (Auto) 76% (31-73) Lymphocytes (%) (Auto) 12% (24-48) Monocytes (%) (Auto) 12% (0-9) Eosinophils (%) (Auto) 0% (0-3) Basophils (%) (Auto) 0% (0-3) Neutrophils # (Auto) 14.3x10^3uL (1.8-7.7) Lymphocytes # (Auto) 2.3x10^3/uL (1.0-4.8) Monocytes # (Auto) 2.2x10^3/uL (0.0-1.1) Eosinophils # (Auto) 0.0x10^3/uL (0.0-0.7) Basophils # (Auto) 0.0x10^3/uL (0.0-0.2) Segmented Neutrophils % 73% (35-66) Lymphocytes % 16% (24-48) Monocytes % 6% (0-10) Basophils % 4% (0-3) Metamyelocytes % 1% (0-0) Toxic Granulation Slight Platelet Estimate Increased (ADEQUATE) Platelet Clumps, EDTA Present Giant Platelets Occ Polychromasia Slight Schistocytes Occ Prothrombin Time 23.0SEC (11.7-14.0) Prothromb Time International Ratio 2.2 (0.8-1.1) Activated Partial Thromboplast Time 45SEC (24-38) Sodium Level 131mmol/L (136-145) Potassium Level 4.2mmol/L (3.5-5.1) Chloride Level 91mmol/L (98-107) Carbon Dioxide Level 25mmol/L (21-32) Anion Gap 15 (6-14) Blood Urea Nitrogen 35mg/dL (8-26) Creatinine 2.1mg/dL (0.7-1.3) Estimated GFR (Cockcroft-Gault) 30.6 Glucose Level 222mg/dL (70-99) Lactic Acid Level 5.6mmol/L (0.4-2.0) 5.6mmol/L (0.4-2.0) Calcium Level 10.3mg/dL (8.5-10.1) Total Bilirubin 1.3mg/dL (0.2-1.0) Direct Bilirubin 0.3mg/dL (0.0-0.2) Aspartate Amino Transf (AST/SGOT) 48U/L (15-37) Alanine Aminotransferase (ALT/SGPT) 74U/L (16-63) Alkaline Phosphatase 70U/L (46-116) Troponin I Quantitative < 0.017ng/mL (0.000-0.055) ZG-Rpf-Q-Type Natriuretic Peptide 1023pg/mL (0-449) Total Protein 9.1g/dL (6.4-8.2) Albumin 4.4g/dL (3.4-5.0) Lipase 561U/L (73-393) Procalcitonin 0.79ng/mL (0.00-0.10) Influenza Type A Antigen Negative (NEGATIVE) Influenza Type B Antigen Negative (NEGATIVE) Urine Color Chhaya Urine Clarity Clear Urine pH 5.0 Urine Specific [place] 1.020 Urine Protein Negativemg/dL (NEG-TRACE) Urine Glucose (UA) Negativemg/dL (NEG) Urine Ketones (Stick) 15mg/dL (NEG) Urine Blood Negative (NEG) Urine Nitrite Negative (NEG) Urine Bilirubin Small (NEG) Urine Urobilinogen Dipstick 0.2mg/dL (0.2 mg/dL) Urine Leukocyte Esterase Negative (NEG) Urine RBC 0/HPF (0-2) Urine WBC Occ/HPF (0-4) Urine Squamous Epithelial Cells Occ/LPF Urine Amorphous Sediment Present/HPF Urine Bacteria 0/HPF (0-FEW) Urine Hyaline Casts Occasional/HPF Test 01/08/17 00:17 01/08/17 03:24 01/08/17 10:20 Lactic Acid Level 5.4mmol/L (0.4-2.0) White Blood Count 16.8x10^3/uL (4.0-11.0) Red Blood Count 5.56x10^6/uL (4.30-5.70) Hemoglobin 15.9g/dL (13.0-17.5) Hematocrit 48.2% (39.0-53.0) Mean Corpuscular Volume 87fL (79-100) Mean Corpuscular Hemoglobin 29pg (25-35) Mean Corpuscular Hemoglobin Concent 33g/dL (31-37) Red Cell Distribution Width 14.3% (11.5-14.5) Platelet Count 303x10^3/uL (140-400) Neutrophils (%) (Auto) 75% (31-73) Lymphocytes (%) (Auto) 11% (24-48) Monocytes (%) (Auto) 14% (0-9) Eosinophils (%) (Auto) 0% (0-3) Basophils (%) (Auto) 0% (0-3) Neutrophils # (Auto) 12.6x10^3uL (1.8-7.7) Lymphocytes # (Auto) 1.8x10^3/uL (1.0-4.8) Monocytes # (Auto) 2.4x10^3/uL (0.0-1.1) Eosinophils # (Auto) 0.0x10^3/uL (0.0-0.7) Basophils # (Auto) 0.0x10^3/uL (0.0-0.2) Sodium Level 134mmol/L (136-145) Potassium Level 3.7mmol/L (3.5-5.1) Chloride Level 96mmol/L (98-107) Carbon Dioxide Level 22mmol/L (21-32) Anion Gap 16 (6-14) Blood Urea Nitrogen 40mg/dL (8-26) Creatinine 2.1mg/dL (0.7-1.3) Estimated GFR (Cockcroft-Gault) 30.6 BUN/Creatinine Ratio 19 (6-20) Glucose Level 190mg/dL (70-99) Calcium Level 8.6mg/dL (8.5-10.1) Total Bilirubin 1.3mg/dL (0.2-1.0) Aspartate Amino Transf (AST/SGOT) 34U/L (15-37) Alanine Aminotransferase (ALT/SGPT) 59U/L (16-63) Alkaline Phosphatase 57U/L (46-116) Total Protein 7.3g/dL (6.4-8.2) Albumin 3.4g/dL (3.4-5.0) Albumin/Globulin Ratio 0.9 (1.0-1.7) O2 Saturation 97% (92-99) Arterial Blood pH 6.93 (7.35-7.45) Arterial Blood pCO2 at Patient Temp 69mmHg (35-46) Arterial Blood pO2 at Patient Temp 137mmHg (65-108) Arterial Blood HCO3 14mmol/L (21-28) Arterial Blood Base Excess -19mmol/L (-3-3) FiO2 100 Objective Assessment S/p Code Acute resp failure - CXR on admit clear but likely aspiration SBO - NIKO Leukocytosis ? reactive Plan Plan of Care Vanc/zosyn started 01/07 would cont Add Micafungin F/u cults/labs D/w Dr. Canas and Dr. Yenni Ball # JENNIFER MACIAS MD Jan 08, 2017 11:19
[2017-01-08] MEDS ORDERED: SODIUM BICARB ADULT 8.4% 50 MEQ/50 ML DISP.SYRIN. IV ONE ×5 (11:30→16:00)
[2017-01-08] MEDS ORDERED: ALBUMIN HUMAN 5% 500 ML IV ONE (11:30)
[2017-01-08] MEDS ORDERED: VECURONIUM BOLUS 10 MG VIAL. IV ONE ×2 (11:30→11:38)
[2017-01-08] MEDS ORDERED: MAGNESIUM SULFATE 2GM 50 ML IV PRN (11:45)
--- NOTE | 2017-01-08 11:45 | CONS ---
DATE OF CONSULTATION: ATTENDING PHYSICIAN: Dr. Bradshaw. REASON FOR CONSULTATION: Respiratory failure, ron gonzalez. HISTORY OF PRESENT ILLNESS: The patient is a 77-year-old morbidly obese male with a BMI of 35. He has a history of coronary artery disease, dyslipidemia. He has history of coronary artery bypass surgery. He presented to the Emergency Room with nausea, vomiting for a few days. He was having generalized abdominal cramping. The patient was on the floor last night. when ron gonzalez was called this am. When the ron gonzalez team arrived, they noticed massive amount of hemetemesis. He probably aspirated a lot. He was intubated by the ER physician. Arterial blood gases revealed a pH of 6.9 with a pCO2 of 69 and pO2 of 137 and a bicarbonate of 14. The patient was transferred to the Intensive Care Unit. I was consulted post ron. On arrival, the patient's blood pressure was in the 80s and heart rate was in the 150s and sinus. He also has a BUN of 40 and a creatinine of 2.1. Lactic acid 5.6. Currently, he is in shock, most likely hemorrhagic/hypovolemic shock. Currently, he is on assist control. I have increased the rate to 30 to correct his respiratory acidosis. FIO2 was down to 70% and a PEEP of 5. Chest x-ray was reviewed post-intubation. Endotracheal tube is in satisfactory position. There is development of mild infiltrates which could be related to aspiration. PAST MEDICAL HISTORY: Significant for history of coronary artery disease, history of dyslipidemia, history of morbid obesity, possible underlying SILVIA. Possible underlying COPD. PAST SURGICAL HISTORY: Coronary artery bypass, tonsillectomy, hernia and adenoids. ALLERGIES: None. CURRENT MEDICATIONS: Reviewed as listed in the MRAD including broad spectrum antibiotics, he is also on hydrocortisone. REVIEW OF SYSTEMS: Unable to obtain as the patient on the ventilator. MEDICATIONS: Reviewed as listed in the MRAD. PHYSICAL EXAMINATION: VITAL SIGNS: Blood pressure is in the 80s systolic. Pulse is in the 150s. Afebrile, pulse ox is 98% on 70% FiO2. HEENT: Sclerae nonicteric. NECK: Supple. LUNGS: With diminished breath sounds with few anterior rhonchi. CARDIOVASCULAR: With tachycardia. ABDOMEN: Markedly obese. EXTREMITIES: With no pitting edema. LABORATORY DATA: Reviewed. His BUN is 40, creatinine 2.1. His sodium 134, potassium 3.7. Lactic acid 5.6. Albumin is 3.4. Influenza panel negative. INR is 2.2. ABGs as discussed in history of present illness. White cell count 16.8, hemoglobin 15.9 and platelets are 303. IMPRESSION: 1. Acute respiratory failure secondary to code blue, most likely from hemorrhagic/ hypovolemic shock and massive aspiration. The patient was in PEA rhythm, received CPR, epinephrine and atropine. 2. Shock, most likely hemorrhagic/ hypovolemic shock. Need to closely follow hemoglobin and GI consultation. We will continue with fluid resuscitation. 3. At this point, cannot exclude the component of septic shock or bowel ischemia. 4. Acute renal failure. Could be related to hypovolemic shock and acute kidney injury. 5. Lactic acidosis, most likely from shock, but would cover with broad-spectrum antibiotics. 6. Coagulopathy with INR of 2.2. We will reverse it. 7. Marked respiratory acidosis. We will use higher ventilatory rates. Follow ABGs. RECOMMENDATIONS: 1. Continue assist control mode. Sedate the patient to synchronize his respirations with the ventilator. Follow ABGs and make necessary adjustments. 2. Broad spectrum antibiotics per Infectious Disease recommendations. 3. IV fluid resuscitation. 4. GI consult./ Surgery following 5. Follow hemoglobin closely. 6. Continue hydrocortisone. 7. Continue broad-spectrum antibiotics. 8. SCDs for Deep venous thrombosis prophylaxis. 9. Stress ulcer prophylaxis. 10. d/w all daughters 11. Discussed with Dr. Soria in Infectious Disease, discussed with RN and RT and discussed with Dr. Paniagua./ Dr Soria Critical care time 45 minutes. FLORES ANDERSON MD DR: CABRERA/ld JOB#: [id number] / [id number] GABRIEL
[2017-01-08] MEDS ORDERED: IV NORMAL SALINE 1000ML BAG 1,000 ML IV SCH (11:48)
[2017-01-08 11:55] LABS: CALCIUM 7.1 mg/dL (8.5-10.1); CREATININE 2.6 mg/dL (0.7-1.3); GFR 23.9; POTASSIUM 3.8 mmol/L (3.5-5.1)
--- NOTE | 2017-01-08 11:55 | PDOC2 ---
CONSULT Date of Consult Date of Consult DATE: 01/08/17 TIME: 11:37 Reason for Consult Reason for Consult: NIKO Referring Physician Referring Physician: Dr Good Identification/Chief Complaint Chief Complaint NV Abd pain; Now S/p Code Blue with aspiration Problems: Source Source: Chart review History of Present Illness Reason for Visit: as dictated Past Medical History Cardiovascular: CAD, HTN, OH, Other GI: Constipation Past Surgical History Past Surgical History: Other Family History Family History: Family History Unknown Social History ALCOHOL: none Drugs: None Lives: with Family Current Problem List Problem List Problems Medical Problems: (1) Dehydration Status: Acute (2) Lactic acidosis Status: Acute (3) Nausea vomiting and diarrhea Status: Acute (4) Uremia Status: Acute Current Medications Current Medications Current Medications Sodium Chloride (Iv Sodium Chloride 0.9% 500ml Bag) 500 ml @ 500 mls/hr 1X ONCE IV Last administered on 01/07/17 19:31; Start 01/07/17 at 19:30; Stop at 20:29; Status DC Ondansetron HCl (Zofran) 4 mg PRN Q30MIN PRN IV NAUSEA/VOMITING Last administered on 01/07/17 19:31; Start 01/07/17 at 19:30; Stop 01/07/17 at 23:00; Status DC Ondansetron HCl (Zofran) 4 mg PRN Q8HRS PRN IV NAUSEA/VOMITING Last administered on 01/08/17 00:42; Start 01/07/17 at 21:15; Stop 01/08/17 at 21:14 Morphine Sulfate 2 mg 2 mg PRN Q2HR PRN IV SEVERE PAIN Last administered on 01/07 23:36; Start 01/07/17 at 21:15; Stop 01/08/17 at 21:14 Sodium Chloride (Iv Sodium Chloride 0.9% 1000ml Bag) 1,000 ml @ 125 mls/hr Q8H IV Last administered on 01/08/17 06:12; Start 01/07/17 at 21:04; Stop 01/08/17 at 21:03 Vancomycin HCl (Vanco Per Pharmacy) 1 each PRN DAILY PRN MC SEE COMMENTS Last administered on 01/08/17 00:20; Start 01/07/17 at 21:15 Piperacillin Sod/ Tazobactam Sod 1 each 1 each PRN DAILY PRN MC SEE COMMENTS; Start 01/07/17 at 21:15 Vancomycin HCl 2 gm/Sodium Chloride 500 ml @ 250 mls/hr 1X ONCE IV Last administered on 01/07/17 23:35; Start 01/07/17 at 22:00; Stop 01/07/17 at 23:59; Status DC Piperacillin Sod/ Tazobactam Sod 2.25 gm/Sodium Chloride 50 ml @ 100 mls/hr Q6HRS IV Last administered on 01/08/17 05:06; Start 01/07/17 at 21:30 Sodium Chloride 1,000 ml @ 765 mls/hr Q1H19M IV Last administered on 01/07/17 21:47; Start 01/07/17 at 21:08; Stop 01/07/17 at 22:35; Status DC Sodium Chloride 500 ml @ 1,000 mls/hr PRN Q30MIN PRN IV SEE COMMENTS; Start at 21:15 Sodium Chloride 1,000 ml @ 765 mls/hr Q1H19M PRN IV SEE COMMENTS; Start at 22:33; Status UNV Vancomycin HCl/ Sodium Chloride (Iv Sodium Chloride 0.9% 500ml Bag) 500 ml @ 250 mls/hr Q24H IV ; Start 01/08/17 at 22:00 Vancomycin HCl 1 each 1 each 1X ONCE MC ; Start 01/09/17 at 21:30; Stop 01/09/17 at 21:31 Sodium Chloride 1,000 ml @ 999 mls/hr 1X ONCE IV Last administered on 02:42; Start 01/08/17 at 03:00; Stop 01/08/17 at 04:00; Status DC Sodium Chloride 500 ml @ 499.445 mls/hr 1X ONCE IV Last administered on 02:49; Start 01/08/17 at 04:00; Stop 01/08/17 at 05:00; Status DC Epinephrine HCl/ Sodium Chloride (Adrenalin/Iv Sodium Chloride 0.9% 250ml) 254 ml @ 3.81 mls/hr ONCE ONCE IV ; Start 01/08/17 at 09:30; Stop 01/11/17 at 04:09 Insulin Aspart (Novolog) 0-7 UNITS TIDWMEALS SQ ; Start 01/08/17 at 12:00 Dextrose 12.5 gm PRN Q15MIN PRN IV SEE COMMENTS; Start 01/08/17 at 10:00 Hydrocortisone Sodium Succinate 100 mg 100 mg Q8HRS IV ; Start 01/08/17 at 10:30 Levothyroxine Sodium/Sodium Chloride (Synthroid/Iv Sodium Chloride 0.9% 50ml) 5 ml @ 100 mls/hr DAILY IVP ; Start 01/09/17 at 09:00 Lidocaine/Sodium Bicarbonate 20 ml 20 ml 1X ONCE IJ Last administered on 10:47; Start 01/08/17 at 10:30; Stop 01/08/17 at 10:31; Status DC Heparin Sodium/ Sodium Chloride 500 ml @ As Directed STK-MED ONCE .ROUTE ; Start 01/08/17 at 10:24; Stop 01/08/17 at 10:25; Status DC Heparin Sodium/ Sodium Chloride 60 unit 60 unit 1X ONCE IV Last administered on 01/08/17 10:47; Start 01/08/17 at 10:45; Stop 01/08/17 at 10:46; Status DC Midazolam HCl 100 ml @ As Directed STK-MED ONCE IV ; Start 01/08/17 at 10:56; Stop 01/08/17 at 10:57; Status DC Norepinephrine Bitartrate 8 mg/ Sodium Chloride 258 ml @ 1.93 mls/hr CONT PRN IV SEE I/O RECORD; Start 01/08/17 at 11:15 Norepinephrine Bitartrate 8 mg/ Sodium Chloride 258 ml @ 0 mls/hr CONT PRN IV SEE I/O RECORD; Start 01/08/17 at 11:15; Status UNV Micafungin Sodium/ Dextrose (Mycamine) 100 ml @ 100 mls/hr Q24H IV ; Start 01/08 at 12:00 Sodium Bicarbonate 50 meq 50 meq 1X ONCE IV ; Start 01/08/17 at 11:30; Stop 01/08 at 11:31 Albumin Human (Plasmanate) 500 ml @ 125 mls/hr 1X ONCE IV ; Start 01/08/17 at 11:30; Stop 01/08/17 at 15:29 Active Scripts Active Reported Zofran Odt (Ondansetron) 4 Mg Tab.rapdis 1 Tab SL Q8HRS Prochlorperazine Maleate 10 Mg Tablet 25 Mg PO Q6HRS Tramadol Hcl 50 Mg Tablet 50 Mg PO Q6H PRN Levothyroxine Sodium 50 Mcg Tablet 50 Mcg PO DAILYAC Pravastatin Sodium 40 Mg Tablet 40 Mg PO DAILY Digoxin 125 Mcg Tablet 1 Tab PO DAILY Laxative Suppository (Bisacodyl) 10 Mg Supp.rect 10 Mg RC DAILY Aspirin Ec (Aspirin) 81 Mg Tablet.dr 1 Tab PO DAILY Allergies Allergies: Coded Allergies: No Known Drug Allergies (Unverified , 01/07/17) ROS Review of System unable to obtain due to sedated and intubated state. Dictated as reviewed in EMR Physical Exam Physical Exam General Appearance: Sedated and Intubated In moderate Distress Eyes: VIsion Unchanged Conjunctiva Normal EN: No EN Drainage Mucous Memb. moist Neck: no JVD no JVP Supple no Thyromegaly - Thick neck CVS: S1 S2 no Murmur No Gallop No Rub no Edema - tachy Resp: no Rales no Rhonchi no Acc. Muscle use GI: BS rare to none NO Bruit Non Tender ? still somewaht Distended vs Morbidly obese : no CVA tenderness; no Suprapubic Tenderness SKIN: no petechial Rashes Breast Exam deferred Mu.Sk: Unable to assess ROM no Muscle Atrophy Heme: Unable to palpate Obvious LAD no palp Splenomegaly NEURO: ? Some twitching; no Asterixis - unabel to assess due to sedated and intubated state Psych: unable to asses due to sedated and intubated state Vital Signs Vital Signs Date Time Temp Pulse Resp B/P Pulse Ox O2 Delivery O2 Flow Rate FiO2 01/08/17 09:50 96 Ventilator 01/08/17 07:00 97.9 120 20 168/110 97.9 Assessment & Plan NIKO - Suspect due to dehydration, ? Pancreatitis OA: Current FLuid and E-lyte status does not necessitate emergent need for Dialysis. Will re-evaluate for Dialysis from time to time due to sev Acidosis gaye if not-amenable to IV Bicarb and Fluids as adminitered. may need CRRT too Met acidosis - Post-code - lactate ^ed - IV Bicarb to get pH to > 7.2 Vol dpeletion - suspect due to NV and Ileus HypoTN: (shock) vol resuscitation and Pressors Shock - suspectedly HypoVolemic - Doubt sepsis per se Discussed Plan of Care and prognosis etc. at length with family; Dr Canas and Dr Paniagua Labs Labs Laboratory Tests Test 01/07/17 18:56 01/07/17 19:44 01/07/17 20:12 01/07/17 20:32 White Blood Count 18.8x10^3/uL (4.0-11.0) Red Blood Count 6.13x10^6/uL (4.30-5.70) Hemoglobin 17.5g/dL (13.0-17.5) Hematocrit 52.7% (39.0-53.0) Mean Corpuscular Volume 86fL (79-100) Mean Corpuscular Hemoglobin 29pg (25-35) Mean Corpuscular Hemoglobin Concent 33g/dL (31-37) Red Cell Distribution Width 14.1% (11.5-14.5) Platelet Count 372x10^3/uL (140-400) Neutrophils (%) (Auto) 76% (31-73) Lymphocytes (%) (Auto) 12% (24-48) Monocytes (%) (Auto) 12% (0-9) Eosinophils (%) (Auto) 0% (0-3) Basophils (%) (Auto) 0% (0-3) Neutrophils # (Auto) 14.3x10^3uL (1.8-7.7) Lymphocytes # (Auto) 2.3x10^3/uL (1.0-4.8) Monocytes # (Auto) 2.2x10^3/uL (0.0-1.1) Eosinophils # (Auto) 0.0x10^3/uL (0.0-0.7) Basophils # (Auto) 0.0x10^3/uL (0.0-0.2) Segmented Neutrophils % 73% (35-66) Lymphocytes % 16% (24-48) Monocytes % 6% (0-10) Basophils % 4% (0-3) Metamyelocytes % 1% (0-0) Toxic Granulation Slight Platelet Estimate Increased (ADEQUATE) Platelet Clumps, EDTA Present Giant Platelets Occ Polychromasia Slight Schistocytes Occ Prothrombin Time 23.0SEC (11.7-14.0) Prothromb Time International Ratio 2.2 (0.8-1.1) Activated Partial Thromboplast Time 45SEC (24-38) Sodium Level 131mmol/L (136-145) Potassium Level 4.2mmol/L (3.5-5.1) Chloride Level 91mmol/L (98-107) Carbon Dioxide Level 25mmol/L (21-32) Anion Gap 15 (6-14) Blood Urea Nitrogen 35mg/dL (8-26) Creatinine 2.1mg/dL (0.7-1.3) Estimated GFR (Cockcroft-Gault) 30.6 Glucose Level 222mg/dL (70-99) Lactic Acid Level 5.6mmol/L (0.4-2.0) 5.6mmol/L (0.4-2.0) Calcium Level 10.3mg/dL (8.5-10.1) Total Bilirubin 1.3mg/dL (0.2-1.0) Direct Bilirubin 0.3mg/dL (0.0-0.2) Aspartate Amino Transf (AST/SGOT) 48U/L (15-37) Alanine Aminotransferase (ALT/SGPT) 74U/L (16-63) Alkaline Phosphatase 70U/L (46-116) Troponin I Quantitative < 0.017ng/mL (0.000-0.055) LO-Wlq-D-Type Natriuretic Peptide 1023pg/mL (0-449) Total Protein 9.1g/dL (6.4-8.2) Albumin 4.4g/dL (3.4-5.0) Lipase 561U/L (73-393) Procalcitonin 0.79ng/mL (0.00-0.10) Influenza Type A Antigen Negative (NEGATIVE) Influenza Type B Antigen Negative (NEGATIVE) Urine Color Chhaya Urine Clarity Clear Urine pH 5.0 Urine Specific Ernul 1.020 Urine Protein Negativemg/dL (NEG-TRACE) Urine Glucose (UA) Negativemg/dL (NEG) Urine Ketones (Stick) 15mg/dL (NEG) Urine Blood Negative (NEG) Urine Nitrite Negative (NEG) Urine Bilirubin Small (NEG) Urine Urobilinogen Dipstick 0.2mg/dL (0.2 mg/dL) Urine Leukocyte Esterase Negative (NEG) Urine RBC 0/HPF (0-2) Urine WBC Occ/HPF (0-4) Urine Squamous Epithelial Cells Occ/LPF Urine Amorphous Sediment Present/HPF Urine Bacteria 0/HPF (0-FEW) Urine Hyaline Casts Occasional/HPF Test 01/08/17 00:17 01/08/17 03:24 01/08/17 10:20 Lactic Acid Level 5.4mmol/L (0.4-2.0) White Blood Count 16.8x10^3/uL (4.0-11.0) Red Blood Count 5.56x10^6/uL (4.30-5.70) Hemoglobin 15.9g/dL (13.0-17.5) Hematocrit 48.2% (39.0-53.0) Mean Corpuscular Volume 87fL (79-100) Mean Corpuscular Hemoglobin 29pg (25-35) Mean Corpuscular Hemoglobin Concent 33g/dL (31-37) Red Cell Distribution Width 14.3% (11.5-14.5) Platelet Count 303x10^3/uL (140-400) Neutrophils (%) (Auto) 75% (31-73) Lymphocytes (%) (Auto) 11% (24-48) Monocytes (%) (Auto) 14% (0-9) Eosinophils (%) (Auto) 0% (0-3) Basophils (%) (Auto) 0% (0-3) Neutrophils # (Auto) 12.6x10^3uL (1.8-7.7) Lymphocytes # (Auto) 1.8x10^3/uL (1.0-4.8) Monocytes # (Auto) 2.4x10^3/uL (0.0-1.1) Eosinophils # (Auto) 0.0x10^3/uL (0.0-0.7) Basophils # (Auto) 0.0x10^3/uL (0.0-0.2) Sodium Level 134mmol/L (136-145) Potassium Level 3.7mmol/L (3.5-5.1) Chloride Level 96mmol/L (98-107) Carbon Dioxide Level 22mmol/L (21-32) Anion Gap 16 (6-14) Blood Urea Nitrogen 40mg/dL (8-26) Creatinine 2.1mg/dL (0.7-1.3) Estimated GFR (Cockcroft-Gault) 30.6 BUN/Creatinine Ratio 19 (6-20) Glucose Level 190mg/dL (70-99) Calcium Level 8.6mg/dL (8.5-10.1) Total Bilirubin 1.3mg/dL (0.2-1.0) Aspartate Amino Transf (AST/SGOT) 34U/L (15-37) Alanine Aminotransferase (ALT/SGPT) 59U/L (16-63) Alkaline Phosphatase 57U/L (46-116) Total Protein 7.3g/dL (6.4-8.2) Albumin 3.4g/dL (3.4-5.0) Albumin/Globulin Ratio 0.9 (1.0-1.7) O2 Saturation 97% (92-99) Arterial Blood pH 6.93 (7.35-7.45) Arterial Blood pCO2 at Patient Temp 69mmHg (35-46) Arterial Blood pO2 at Patient Temp 137mmHg (65-108) Arterial Blood HCO3 14mmol/L (21-28) Arterial Blood Base Excess -19mmol/L (-3-3) FiO2 100 Laboratory Tests Test 01/07/17 18:56 01/07/17 19:44 01/07/17 20:12 01/07/17 20:32 White Blood Count 18.8x10^3/uL (4.0-11.0) Red Blood Count 6.13x10^6/uL (4.30-5.70) Hemoglobin 17.5g/dL (13.0-17.5) Hematocrit 52.7% (39.0-53.0) Mean Corpuscular Volume 86fL (79-100) Mean Corpuscular Hemoglobin 29pg (25-35) Mean Corpuscular Hemoglobin Concent 33g/dL (31-37) Red Cell Distribution Width 14.1% (11.5-14.5) Platelet Count 372x10^3/uL (140-400) Neutrophils (%) (Auto) 76% (31-73) Lymphocytes (%) (Auto) 12% (24-48) Monocytes (%) (Auto) 12% (0-9) Eosinophils (%) (Auto) 0% (0-3) Basophils (%) (Auto) 0% (0-3) Neutrophils # (Auto) 14.3x10^3uL (1.8-7.7) Lymphocytes # (Auto) 2.3x10^3/uL (1.0-4.8) Monocytes # (Auto) 2.2x10^3/uL (0.0-1.1) Eosinophils # (Auto) 0.0x10^3/uL (0.0-0.7) Basophils # (Auto) 0.0x10^3/uL (0.0-0.2) Segmented Neutrophils % 73% (35-66) Lymphocytes % 16% (24-48) Monocytes % 6% (0-10) Basophils % 4% (0-3) Metamyelocytes % 1% (0-0) Toxic Granulation Slight Platelet Estimate Increased (ADEQUATE) Platelet Clumps, EDTA Present Giant Platelets Occ Polychromasia Slight Schistocytes Occ Prothrombin Time 23.0SEC (11.7-14.0) Prothromb Time International Ratio 2.2 (0.8-1.1) Activated Partial Thromboplast Time 45SEC (24-38) Sodium Level 131mmol/L (136-145) Potassium Level 4.2mmol/L (3.5-5.1) Chloride Level 91mmol/L (98-107) Carbon Dioxide Level 25mmol/L (21-32) Anion Gap 15 (6-14) Blood Urea Nitrogen 35mg/dL (8-26) Creatinine 2.1mg/dL (0.7-1.3) Estimated GFR (Cockcroft-Gault) 30.6 Glucose Level 222mg/dL (70-99) Lactic Acid Level 5.6mmol/L (0.4-2.0) 5.6mmol/L (0.4-2.0) Calcium Level 10.3mg/dL (8.5-10.1) Total Bilirubin 1.3mg/dL (0.2-1.0) Direct Bilirubin 0.3mg/dL (0.0-0.2) Aspartate Amino Transf (AST/SGOT) 48U/L (15-37) Alanine Aminotransferase (ALT/SGPT) 74U/L (16-63) Alkaline Phosphatase 70U/L (46-116) Troponin I Quantitative < 0.017ng/mL (0.000-0.055) XC-Dbl-T-Type Natriuretic Peptide 1023pg/mL (0-449) Total Protein 9.1g/dL (6.4-8.2) Albumin 4.4g/dL (3.4-5.0) Lipase 561U/L (73-393) Procalcitonin 0.79ng/mL (0.00-0.10) Influenza Type A Antigen Negative (NEGATIVE) Influenza Type B Antigen Negative (NEGATIVE) Urine Color Chhaya Urine Clarity Clear Urine pH 5.0 Urine Specific Ernul 1.020 Urine Protein Negativemg/dL (NEG-TRACE) Urine Glucose (UA) Negativemg/dL (NEG) Urine Ketones (Stick) 15mg/dL (NEG) Urine Blood Negative (NEG) Urine Nitrite Negative (NEG) Urine Bilirubin Small (NEG) Urine Urobilinogen Dipstick 0.2mg/dL (0.2 mg/dL) Urine Leukocyte Esterase Negative (NEG) Urine RBC 0/HPF (0-2) Urine WBC Occ/HPF (0-4) Urine Squamous Epithelial Cells Occ/LPF Urine Amorphous Sediment Present/HPF Urine Bacteria 0/HPF (0-FEW) Urine Hyaline Casts Occasional/HPF Test 01/08/17 00:17 01/08/17 03:24 01/08/17 10:20 Lactic Acid Level 5.4mmol/L (0.4-2.0) White Blood Count 16.8x10^3/uL (4.0-11.0) Red Blood Count 5.56x10^6/uL (4.30-5.70) Hemoglobin 15.9g/dL (13.0-17.5) Hematocrit 48.2% (39.0-53.0) Mean Corpuscular Volume 87fL (79-100) Mean Corpuscular Hemoglobin 29pg (25-35) Mean Corpuscular Hemoglobin Concent 33g/dL (31-37) Red Cell Distribution Width 14.3% (11.5-14.5) Platelet Count 303x10^3/uL (140-400) Neutrophils (%) (Auto) 75% (31-73) Lymphocytes (%) (Auto) 11% (24-48) Monocytes (%) (Auto) 14% (0-9) Eosinophils (%) (Auto) 0% (0-3) Basophils (%) (Auto) 0% (0-3) Neutrophils # (Auto) 12.6x10^3uL (1.8-7.7) Lymphocytes # (Auto) 1.8x10^3/uL (1.0-4.8) Monocytes # (Auto) 2.4x10^3/uL (0.0-1.1) Eosinophils # (Auto) 0.0x10^3/uL (0.0-0.7) Basophils # (Auto) 0.0x10^3/uL (0.0-0.2) Sodium Level 134mmol/L (136-145) Potassium Level 3.7mmol/L (3.5-5.1) Chloride Level 96mmol/L (98-107) Carbon Dioxide Level 22mmol/L (21-32) Anion Gap 16 (6-14) Blood Urea Nitrogen 40mg/dL (8-26) Creatinine 2.1mg/dL (0.7-1.3) Estimated GFR (Cockcroft-Gault) 30.6 BUN/Creatinine Ratio 19 (6-20) Glucose Level 190mg/dL (70-99) Calcium Level 8.6mg/dL (8.5-10.1) Total Bilirubin 1.3mg/dL (0.2-1.0) Aspartate Amino Transf (AST/SGOT) 34U/L (15-37) Alanine Aminotransferase (ALT/SGPT) 59U/L (16-63) Alkaline Phosphatase 57U/L (46-116) Total Protein 7.3g/dL (6.4-8.2) Albumin 3.4g/dL (3.4-5.0) Albumin/Globulin Ratio 0.9 (1.0-1.7) O2 Saturation 97% (92-99) Arterial Blood pH 6.93 (7.35-7.45) Arterial Blood pCO2 at Patient Temp 69mmHg (35-46) Arterial Blood pO2 at Patient Temp 137mmHg (65-108) Arterial Blood HCO3 14mmol/L (21-28) Arterial Blood Base Excess -19mmol/L (-3-3) FiO2 100 Images Images The heart size is normal. There are dense coronary artery calcifications. Mild fibrotic changes are noted in the lung bases. Evaluation of the abdominal viscera is limited in the absence of IV contrast.The liver and spleen are normal in size. The gallbladder is nondistended. The pancreas, and adrenal glands are within normal limits. The kidneys are unremarkable. There is no abdominopelvic ascites. Abdominal aorta is normal in caliber. The stomach is significantly dilated, as is the proximal small bowel. There appears to be a transition point in the right lower quadrant to decompressed ilium. There is no pneumoperitoneum or ascites. The appendix is normal. Urinary bladder is within normal limits. No destructive osseus lesions are identified. IMPRESSION: Appropriately positioned endotracheal tube and left IJ catheter. Bilateral pulmonary infiltrates, new relative to the prior study. No pneumothorax seen LUCIA ARANDA MD Jan 08, 2017 11:55
[2017-01-08] MEDS ORDERED: INSULIN ASPART 300 UNITS/3 ML INSULN.PEN SQ SCH (12:00)
[2017-01-08] MEDS ORDERED: ACETAMINOPHEN 650 MG/20.3 ML SOLUTION. NG SCH (12:00)
[2017-01-08] MEDS ORDERED: ATROPINE 0.5 MG/5 ML DISP.SYRIN. ONE (12:00)
[2017-01-08] MEDS ORDERED: MINERAL OIL/PETROLATUM,WHITE OPHTH OINT 3.5GM TUBE. OU PRN (12:00)
[2017-01-08] MEDS ORDERED: SODIUM BICARB ADULT 8.4% 50 MEQ/50 ML DISP.SYRIN. ONE (12:00)
[2017-01-08] MEDS ORDERED: ASPIRIN 300 MG SUPP.RECT PR SCH (12:00)
[2017-01-08] MEDS ORDERED: FENTANYL STANDARD PCA 30 ML IV PRN (12:00)
[2017-01-08] MEDS ORDERED: MEPERIDINE PF 25 MG/ML VIAL. IV PRN (12:00)
[2017-01-08] MEDS ORDERED: 0.9 % SODIUM CHLORIDE 10 ML DISP.SYRIN. IV PRN (12:00)
[2017-01-08] MEDS ORDERED: EPINEPHRINE 1 MG/10 ML DISP.SYRIN. ONE (12:00)
[2017-01-08] MEDS ORDERED: VECURONIUM BOLUS 10 MG VIAL. IV PRN (12:00)
[2017-01-08] MEDS ORDERED: MICAFUNGIN 100 MG in IV DEXTROSE 5% 100 ML IV SCH (12:00)
[2017-01-08] MEDS ORDERED: ACETAMINOPHEN 325 MG SUPP.RECT PR ONE (12:00)
[2017-01-08] MEDS ORDERED: FENTANYL PF 100 MCG/2 ML VIAL. IV PRN (12:00)
[2017-01-08 12:01] LABS: ALBUMIN 2.3 g/dL (3.4-5.0); DIRECT BILIRUBIN 0.3 mg/dL (0.0-0.2); TOTAL BILIRUBIN 0.7 mg/dL (0.2-1.0); TOTAL PROTEIN 5.1 g/dL (6.4-8.2)
[2017-01-08] MEDS ORDERED: IV DEXTROSE 5% 1,000 ML IV SCH (12:15)
--- NOTE | 2017-01-08 12:26 | PDOC2 ---
GI CONSULT Reason For Consult: SBO HPI: HPI: History from chart and staff. 77 y/o male evaluated in the ER for n/v, abdominal cramping, and weakness. CT A/P c/w SBO (stomach and proximal small bowel significantly dilated w/ transition point in the right lower quadrant, also noted CAD. He was admitted to a regular floor and was awake/alert this a.m. but then found covered in emesis, pulseless, and not breathing. He is now intubated in ICU post-code during which was noted copious fluid from nose/mouth w/ bed covered in emesis. Labs WBC 16.8, Hgb 15.9, INR 2.2, lactic acid 5.4, procalcitonin 0.79, BUN 40, Cr 2.1, t bili 1.3, BNP 1023, lipase 561, ABG pH 6.93, pCO2 69. Original CXR was w/o acute abnormality, repeat post-code showed new bilateral pulmonary infiltrates. ID, pulm, cardio, renal, surg, and palliative care also following. In ICU has filled 4 canisters of dark brown malodorous liquid from OG. PMH: PMH: [place], CAD, HTN, HLD, hypothyroidism, SBO, umbilical hernia repair, left inguinal hernia repair, tonsillectomy FH: Family History: No pertinent hx Social History: ALCOHOL: none Drugs: None ROS: Unobtainable. VItals: Vitals: Vital Signs Date Time Temp Pulse Resp B/P Pulse Ox O2 Delivery O2 Flow Rate FiO2 01/08/17 09:50 96 Ventilator 01/08/17 07:00 97.9 120 20 168/110 97.9 Labs: Labs: Laboratory Tests Test 01/07/17 18:56 01/07/17 19:44 01/07/17 20:12 01/07/17 20:32 White Blood Count 18.8x10^3/uL (4.0-11.0) Red Blood Count 6.13x10^6/uL (4.30-5.70) Hemoglobin 17.5g/dL (13.0-17.5) Hematocrit 52.7% (39.0-53.0) Mean Corpuscular Volume 86fL (79-100) Mean Corpuscular Hemoglobin 29pg (25-35) Mean Corpuscular Hemoglobin Concent 33g/dL (31-37) Red Cell Distribution Width 14.1% (11.5-14.5) Platelet Count 372x10^3/uL (140-400) Neutrophils (%) (Auto) 76% (31-73) Lymphocytes (%) (Auto) 12% (24-48) Monocytes (%) (Auto) 12% (0-9) Eosinophils (%) (Auto) 0% (0-3) Basophils (%) (Auto) 0% (0-3) Neutrophils # (Auto) 14.3x10^3uL (1.8-7.7) Lymphocytes # (Auto) 2.3x10^3/uL (1.0-4.8) Monocytes # (Auto) 2.2x10^3/uL (0.0-1.1) Eosinophils # (Auto) 0.0x10^3/uL (0.0-0.7) Basophils # (Auto) 0.0x10^3/uL (0.0-0.2) Segmented Neutrophils % 73% (35-66) Lymphocytes % 16% (24-48) Monocytes % 6% (0-10) Basophils % 4% (0-3) Metamyelocytes % 1% (0-0) Toxic Granulation Slight Platelet Estimate Increased (ADEQUATE) Platelet Clumps, EDTA Present Giant Platelets Occ Polychromasia Slight Schistocytes Occ Prothrombin Time 23.0SEC (11.7-14.0) Prothromb Time International Ratio 2.2 (0.8-1.1) Activated Partial Thromboplast Time 45SEC (24-38) Sodium Level 131mmol/L (136-145) Potassium Level 4.2mmol/L (3.5-5.1) Chloride Level 91mmol/L (98-107) Carbon Dioxide Level 25mmol/L (21-32) Anion Gap 15 (6-14) Blood Urea Nitrogen 35mg/dL (8-26) Creatinine 2.1mg/dL (0.7-1.3) Estimated GFR (Cockcroft-Gault) 30.6 Glucose Level 222mg/dL (70-99) Lactic Acid Level 5.6mmol/L (0.4-2.0) 5.6mmol/L (0.4-2.0) Calcium Level 10.3mg/dL (8.5-10.1) Total Bilirubin 1.3mg/dL (0.2-1.0) Direct Bilirubin 0.3mg/dL (0.0-0.2) Aspartate Amino Transf (AST/SGOT) 48U/L (15-37) Alanine Aminotransferase (ALT/SGPT) 74U/L (16-63) Alkaline Phosphatase 70U/L (46-116) Troponin I Quantitative < 0.017ng/mL (0.000-0.055) JL-Szj-H-Type Natriuretic Peptide 1023pg/mL (0-449) Total Protein 9.1g/dL (6.4-8.2) Albumin 4.4g/dL (3.4-5.0) Lipase 561U/L (73-393) Procalcitonin 0.79ng/mL (0.00-0.10) Influenza Type A Antigen Negative (NEGATIVE) Influenza Type B Antigen Negative (NEGATIVE) Urine Color Chhaya Urine Clarity Clear Urine pH 5.0 Urine Specific [place] 1.020 Urine Protein Negativemg/dL (NEG-TRACE) Urine Glucose (UA) Negativemg/dL (NEG) Urine Ketones (Stick) 15mg/dL (NEG) Urine Blood Negative (NEG) Urine Nitrite Negative (NEG) Urine Bilirubin Small (NEG) Urine Urobilinogen Dipstick 0.2mg/dL (0.2 mg/dL) Urine Leukocyte Esterase Negative (NEG) Urine RBC 0/HPF (0-2) Urine WBC Occ/HPF (0-4) Urine Squamous Epithelial Cells Occ/LPF Urine Amorphous Sediment Present/HPF Urine Bacteria 0/HPF (0-FEW) Urine Hyaline Casts Occasional/HPF Test 01/08/17 00:17 01/08/17 03:24 01/08/17 10:20 Lactic Acid Level 5.4mmol/L (0.4-2.0) White Blood Count 16.8x10^3/uL (4.0-11.0) Red Blood Count 5.56x10^6/uL (4.30-5.70) Hemoglobin 15.9g/dL (13.0-17.5) Hematocrit 48.2% (39.0-53.0) Mean Corpuscular Volume 87fL (79-100) Mean Corpuscular Hemoglobin 29pg (25-35) Mean Corpuscular Hemoglobin Concent 33g/dL (31-37) Red Cell Distribution Width 14.3% (11.5-14.5) Platelet Count 303x10^3/uL (140-400) Neutrophils (%) (Auto) 75% (31-73) Lymphocytes (%) (Auto) 11% (24-48) Monocytes (%) (Auto) 14% (0-9) Eosinophils (%) (Auto) 0% (0-3) Basophils (%) (Auto) 0% (0-3) Neutrophils # (Auto) 12.6x10^3uL (1.8-7.7) Lymphocytes # (Auto) 1.8x10^3/uL (1.0-4.8) Monocytes # (Auto) 2.4x10^3/uL (0.0-1.1) Eosinophils # (Auto) 0.0x10^3/uL (0.0-0.7) Basophils # (Auto) 0.0x10^3/uL (0.0-0.2) Sodium Level 134mmol/L (136-145) Potassium Level 3.7mmol/L (3.5-5.1) Chloride Level 96mmol/L (98-107) Carbon Dioxide Level 22mmol/L (21-32) Anion Gap 16 (6-14) Blood Urea Nitrogen 40mg/dL (8-26) Creatinine 2.1mg/dL (0.7-1.3) Estimated GFR (Cockcroft-Gault) 30.6 BUN/Creatinine Ratio 19 (6-20) Glucose Level 190mg/dL (70-99) Calcium Level 8.6mg/dL (8.5-10.1) Total Bilirubin 1.3mg/dL (0.2-1.0) Aspartate Amino Transf (AST/SGOT) 34U/L (15-37) Alanine Aminotransferase (ALT/SGPT) 59U/L (16-63) Alkaline Phosphatase 57U/L (46-116) Total Protein 7.3g/dL (6.4-8.2) Albumin 3.4g/dL (3.4-5.0) Albumin/Globulin Ratio 0.9 (1.0-1.7) O2 Saturation 97% (92-99) Arterial Blood pH 6.93 (7.35-7.45) Arterial Blood pCO2 at Patient Temp 69mmHg (35-46) Arterial Blood pO2 at Patient Temp 137mmHg (65-108) Arterial Blood HCO3 14mmol/L (21-28) Arterial Blood Base Excess -19mmol/L (-3-3) FiO2 100 Allergies: Coded Allergies: No Known Drug Allergies (Unverified , 01/07/17) Medications: Current Medications Medications (Trade) Dose Ordered Sig/Rod Route PRN Reason Start Time Stop Time Status Last Admin Dose Admin Sodium Chloride (Iv Sodium Chloride 0.9% 500ml Bag) 500 ml @ 500 mls/hr 1X ONCE IV 01/07/17 19:30 01/07/17 20:29 DC 01/07/17 19:31 Ondansetron HCl (Zofran) 4 mg PRN Q30MIN PRN IV NAUSEA/VOMITING 01/07/17 19:30 01/07/17 23:00 DC 01/07/17 19:31 Ondansetron HCl (Zofran) 4 mg PRN Q8HRS PRN IV NAUSEA/VOMITING 01/07/17 21:15 01/08/17 21:14 01/08/17 00:42 Morphine Sulfate 2 mg 2 mg PRN Q2HR PRN IV SEVERE PAIN 01/07/17 21:15 01/08/17 21:14 01/07/17 23:36 Sodium Chloride (Iv Sodium Chloride 0.9% 1000ml Bag) 1,000 ml @ 125 mls/hr Q8H IV 01/07/17 21:04 01/08/17 21:03 01/08/17 06:12 Vancomycin HCl 1 each 1 each PRN DAILY PRN MC SEE COMMENTS 01/07/17 21:15 01/08/17 00:20 Vancomycin HCl 2 gm/Sodium Chloride 500 ml @ 250 mls/hr 1X ONCE IV 01/07/17 22:00 01/07/17 23:59 DC 01/07/17 23:35 Piperacillin Sod/ Tazobactam Sod 2.25 gm/Sodium Chloride 50 ml @ 100 mls/hr Q6HRS IV 01/07/17 21:30 01/08/17 05:06 Sodium Chloride 1,000 ml @ 765 mls/hr Q1H19M IV 01/07/17 21:08 01/07/17 22:35 DC 01/07/17 21:47 Sodium Chloride 1,000 ml @ 999 mls/hr 1X ONCE IV 01/08/17 03:00 01/08/17 04:00 DC 01/08/17 02:42 Sodium Chloride (Iv Sodium Chloride 0.9% 1000ml Bag) 500 ml @ 499.445 mls/hr 1X ONCE IV 01/08/17 04:00 01/08/17 05:00 DC 01/08/17 02:49 Lidocaine/Sodium Bicarbonate (Buffered Lidocaine 1%) 20 ml 1X ONCE IJ 01/08/17 10:30 01/08/17 10:31 DC 01/08/17 10:47 Heparin Sodium/ Sodium Chloride 60 unit 1X ONCE IV 01/08/17 10:45 01/08/17 10:46 DC 01/08/17 10:47 Imaging: Imaging: CXR 01/08/17 IMPRESSION: Appropriately positioned endotracheal tube and left IJ catheter. Bilateral pulmonary infiltrates, new relative to the prior study. No pneumothorax seen. CT A/P w/o contrast 01/07/17 Impression: - Findings consistent with small bowel obstruction. No evidence for hollow viscus rupture. - Normal appendix. - Dense coronary artery disease. CXR 01/07/17 IMPRESSION: Suboptimal inspiratory effort. No definite acute or focal process seen in the chest. PE: GEN: intubated, cooling blankets HEENT: atraumatic LUNGS: on vent HEART: tachycardic ABD: no bowel sounds +OG EXTREMITY: no BLE edema NEURO/PSYCH: sedated OTHER: noted three full OG canisters of dark brown liquid A/P: A/P: SBO, vomiting S/p code Lactic acidosis -on atbx ARF w/ new lung infiltrates -?aspiration -intubated in ICU Leukocytosis NIKO Elevated lipase -mild (561) -normal pancreas, gallbladder on CT -- ?code from aspiration vs ischemic bowel w/ lactic acidosis Continue OG/NG suction, await further labs. SUSAN RODRIGUEZ Jan 08, 2017 12:26
[2017-01-08 12:29] LABS: HCO3 ABG 16 mmol/L (21-28); PCO2 ABG 52 mmHg (35-46); PO2 ABG 56 mmHg (65-108); SAT O2 ABG 79 % (92-99)
[2017-01-08 12:30] LABS: FIO2 ABG 100; PH ABG 7.11 (7.35-7.45)
--- NOTE | 2017-01-08 12:37 | PDOC ---
Provider Note Provider Note #[id number]--[email or web address]. CHARLIE BLACKMAN MD Jan 08, 2017 12:37
[2017-01-08] MEDS ORDERED: MIDAZOLAM PREMIX 100 ML IV PRN (12:45)
[2017-01-08 13:49] LABS: BASO % 1 % (0-3); EOS % 1 % (0-3); HEMATOCRIT 40.3 % (39.0-53.0); HEMOGLOBIN 13.6 g/dL (13.0-17.5); LYMPH # 0.3 x10^3/uL (1.0-4.8); LYMPH % 32 % (24-48); MEAN CORPUSCULAR HEMOGLOBIN 30 pg (25-35); MEAN CORPUSCULAR HGB CONC 34 g/dL (31-37); MEAN CORPUSCULAR VOLUME 88 fL (79-100); MONO % 5 % (0-9); NEUT % 63 % (31-73); PLATELET COUNT 206 x10^3/uL (140-400); RED BLOOD COUNT 4.59 x10^6/uL (4.30-5.70); RED CELL DISTRIBUTION WIDTH 14.2 % (11.5-14.5)
[2017-01-08 14:00] LABS: WHITE BLOOD COUNT 1.1 x10^3/uL (4.0-11.0)
[2017-01-08] MEDS: HYDROCORTISONE SOD SUCC/PF 100 MG/2 ML VIAL. IV SCH ×2 (14:00→14:06)
[2017-01-08 14:02] LABS: INR 1.8 (0.8-1.1); PROTHROMBIN TIME PATIENT 19.8 SEC (11.7-14.0)
--- NOTE | 2017-01-08 14:48 | RAD ---
Procedure: Central line placement at the bedside Clinical Indication: 77-year-old requiring central venous access Sedation: Local anesthesia only Antibiotics: None Fluoro Time: Not applicable Contrast: None Sterility: All elements of maximal sterile barrier technique including the use of a cap, mask, sterile gown, sterile gloves, large sterile sheet, appropriate hand hygiene, and 2% chlorhexidine for cutaneous antisepsis (or acceptable alternative antiseptic per current guidelines) were followed for this procedure. Consent: The procedure was explained in its entirety to the patient or the patients designated regional sales representative by a member of the treatment team, including a discussion of the risks, benefits and commonly accepted alternatives to the procedure, as well as the expected consequences of no therapy whatsoever. Discussion of the risks included, but was not limited to, those that are most frequent and those that are rare but possibly severe or life-threatening, as well as the possibility of unforeseen complications. Technique and Findings: Following informed consent, the patient was prepped and draped in the usual sterile fashion. Ultrasound interrogation of the left neck revealed patency and compressibility of the left internal jugular vein. A hardcopy ultrasound image was recorded. A 21-gauge micropuncture needle was used to gain access to this vein after local anesthesia was achieved with 1% Lidocaine. The needle was exchanged over the wire for a small dilator followed by a triple lumen central line. All 3 lumens flushed and aspirated with ease. The catheter was sutured to the skin and a chest x-ray was obtained to assess for line position. Complications: None Impression: 1. Central venous catheter placement as described.
--- NOTE | 2017-01-08 15:08 | PDOC2 ---
CONSULT Date of Consult Date of Consult DATE: 01/08/17 TIME: 14:49 Reason for Consult Reason for Consult: Post Cardiac arrest Referring Physician Referring Physician: Dr. Good Identification/Chief Complaint Chief Complaint Abdominal pain, aspiration, cardiac arrest History of Present Illness Reason for Visit: Pt complained of abdominal pain yesterday. He called my office and I gave him zofran and scheduled an appointment for him to come in this week. Pt last night came into the ER and was admitted for abdominal pain, nausea, and vomiting. Pt went into cardiac arrest this morning. Nurse found patient unresponsive this morning. She stated she saw him 10-15 min before this occurrence and he was stable. Pt had aspirated vomit. Pt was revived and sent to ICU where 4-5L of fluid were suctioned via NG tube. After arrival in ICU the patient was hypotensive on multiple drips, intubated and receiving ventilatory support. Patient unable to help with the history at this time Past Medical History Cardiovascular: CAD, HTN, PA, Other GI: Constipation Past Surgical History Past Surgical History: Other Family History Family History: Family History Unknown Social History ALCOHOL: none Drugs: None Lives: with Family Current Problem List Problem List Problems Medical Problems: (1) Dehydration Status: Acute (2) Lactic acidosis Status: Acute (3) Nausea vomiting and diarrhea Status: Acute (4) Uremia Status: Acute Current Medications Current Medications Current Medications Sodium Chloride (Iv Sodium Chloride 0.9% 500ml Bag) 500 ml @ 500 mls/hr 1X ONCE IV Last administered on 01/07/17 19:31; Start 01/07/17 at 19:30; Stop at 20:29; Status DC Ondansetron HCl (Zofran) 4 mg PRN Q30MIN PRN IV NAUSEA/VOMITING Last administered on 01/07/17 19:31; Start 01/07/17 at 19:30; Stop 01/07/17 at 23:00; Status DC Ondansetron HCl (Zofran) 4 mg PRN Q8HRS PRN IV NAUSEA/VOMITING Last administered on 01/08/17 00:42; Start 01/07/17 at 21:15; Stop 01/08/17 at 21:14 Morphine Sulfate 2 mg 2 mg PRN Q2HR PRN IV SEVERE PAIN Last administered on 01/07 23:36; Start 01/07/17 at 21:15; Stop 01/08/17 at 21:14 Sodium Chloride (Iv Sodium Chloride 0.9% 1000ml Bag) 1,000 ml @ 125 mls/hr Q8H IV Last administered on 01/08/17 06:12; Start 01/07/17 at 21:04; Stop 01/08/17 at 12:07; Status DC Vancomycin HCl (Vanco Per Pharmacy) 1 each PRN DAILY PRN MC SEE COMMENTS Last administered on 01/08/17 13:47; Start 01/07/17 at 21:15 Piperacillin Sod/ Tazobactam Sod 1 each 1 each PRN DAILY PRN MC SEE COMMENTS; Start 01/07/17 at 21:15 Vancomycin HCl 2 gm/Sodium Chloride 500 ml @ 250 mls/hr 1X ONCE IV Last administered on 01/07/17 23:35; Start 01/07/17 at 22:00; Stop 01/07/17 at 23:59; Status DC Piperacillin Sod/ Tazobactam Sod 2.25 gm/Sodium Chloride 50 ml @ 100 mls/hr Q6HRS IV Last administered on 01/08/17 05:06; Start 01/07/17 at 21:30 Sodium Chloride 1,000 ml @ 765 mls/hr Q1H19M IV Last administered on 01/07/17 21:47; Start 01/07/17 at 21:08; Stop 01/07/17 at 22:35; Status DC Sodium Chloride 500 ml @ 1,000 mls/hr PRN Q30MIN PRN IV SEE COMMENTS; Start at 21:15 Sodium Chloride 1,000 ml @ 765 mls/hr Q1H19M PRN IV SEE COMMENTS; Start at 22:33; Status UNV Vancomycin HCl/ Sodium Chloride (Iv Sodium Chloride 0.9% 500ml Bag) 500 ml @ 250 mls/hr Q24H IV ; Start 01/08/17 at 22:00 Vancomycin HCl 1 each 1 each 1X ONCE MC ; Start 01/09/17 at 21:30; Stop 01/09/17 at 21:31 Sodium Chloride 1,000 ml @ 999 mls/hr 1X ONCE IV Last administered on 02:42; Start 01/08/17 at 03:00; Stop 01/08/17 at 04:00; Status DC Sodium Chloride 500 ml @ 499.445 mls/hr 1X ONCE IV Last administered on 02:49; Start 01/08/17 at 04:00; Stop 01/08/17 at 05:00; Status DC Epinephrine HCl/ Sodium Chloride (Adrenalin/Iv Sodium Chloride 0.9% 250ml) 254 ml @ 3.81 mls/hr ONCE ONCE IV Last administered on 01/08/17 08:45; Start 01/08 at 09:30; Stop 01/11/17 at 04:09 Insulin Aspart (Novolog) 0-7 UNITS TIDWMEALS SQ ; Start 01/08/17 at 12:00 Dextrose 12.5 gm PRN Q15MIN PRN IV SEE COMMENTS; Start 01/08/17 at 10:00 Hydrocortisone Sodium Succinate 100 mg 100 mg Q8HRS IV Last administered on 01/08 14:06; Start 01/08/17 at 10:30 Levothyroxine Sodium/Sodium Chloride (Synthroid/Iv Sodium Chloride 0.9% 50ml) 5 ml @ 100 mls/hr DAILY IVP ; Start 01/09/17 at 09:00 Lidocaine/Sodium Bicarbonate 20 ml 20 ml 1X ONCE IJ Last administered on 10:47; Start 01/08/17 at 10:30; Stop 01/08/17 at 10:31; Status DC Heparin Sodium/ Sodium Chloride 500 ml @ As Directed STK-MED ONCE .ROUTE ; Start 01/08/17 at 10:24; Stop 01/08/17 at 10:25; Status DC Heparin Sodium/ Sodium Chloride 60 unit 60 unit 1X ONCE IV Last administered on 01/08/17 10:47; Start 01/08/17 at 10:45; Stop 01/08/17 at 10:46; Status DC Midazolam HCl 100 ml @ As Directed STK-MED ONCE IV ; Start 01/08/17 at 10:56; Stop 01/08/17 at 10:57; Status DC Norepinephrine Bitartrate 8 mg/ Sodium Chloride 258 ml @ 1.93 mls/hr CONT PRN IV SEE I/O RECORD Last administered on 01/08/17 11:45; Start 01/08/17 at 11:15 Norepinephrine Bitartrate 8 mg/ Sodium Chloride 258 ml @ 0 mls/hr CONT PRN IV SEE I/O RECORD; Start 01/08/17 at 11:15; Status UNV Micafungin Sodium/ Dextrose (Mycamine) 100 ml @ 100 mls/hr Q24H IV Last administered on 01/08/17 14:11; Start 01/08/17 at 12:00 Sodium Bicarbonate 50 meq 50 meq 1X ONCE IV Last administered on 01/08/17 12: 33; Start 01/08/17 at 11:30; Stop 01/08/17 at 11:31; Status DC Albumin Human (Plasmanate) 500 ml @ 125 mls/hr 1X ONCE IV Last administered on 01/08/17 11:30; Start 01/08/17 at 11:30; Stop 01/08/17 at 15:29 Vecuronium [place] 10 mg 10 mg STK-MED ONCE IV ; Start 01/08/17 at 11:38; Stop at 11:39; Status DC Magnesium Sulfate/ Dextrose (Magnesium Sulfate PREMIX 2GM) 50 ml @ 25 mls/hr PRN DAILY PRN IV for Mag < 1.7 on am labs; Start 01/08/17 at 11:45 Acetaminophen 325 mg 325 mg 1X ONCE [place] Last administered on 01/08/17 12:03; Start 01/08/17 at 12:00; Stop 01/08/17 at 12:01; Status DC Sodium Chloride (Iv Sodium Chloride 0.9% 1000ml Bag) 1,000 ml @ 1,000 mls/hr Q1H IV Last administered on 01/08/17 09:00; Start 01/08/17 at 11:48; Stop at 12:07; Status DC Fentanyl Citrate 25 mcg 25 mcg PRN Q30MIN PRN IV SED Last administered on 12:42; Start 01/08/17 at 12:00 Fentanyl Citrate (Fentanyl 600 Mcg/30 ml EXTRUSION PRESS ADJUSTER) 30 ml @ 2.5 mls/hr CONT PRN PRN IV IVF Last administered on 01/08/17 12:34; Start 01/08/17 at 12:00 Vecuronium [place] (Norcuron Bolus) 10 mg PRN Q30MIN PRN IV SHIVERING; Start at 12:00 Meperidine HCl (Demerol) 12.5 mg PRN Q30MIN PRN IV SHIVERING; Start 01/08/17 at 12:00 Multi-Ingred Cream/Lotion/Oil/ Oint (Artificial Tears Eye Oint) 1 mayra PRN Q6HRS PRN OU 0.5 INCH FOR DRY EYE; Start 01/08/17 at 12:00 Famotidine (Pepcid) 20 mg QHS IVP ; Start 01/08/17 at 21:00 Aspirin (Aspirin) 300 mg DAILY [place] ; Start 01/08/17 at 12:00 Sodium Chloride (Normal Saline Flush) 3 ml QSHIFT PRN IV AFTER MEDS AND BLOOD DRAWS; Start 01/08/17 at 12:00 Acetaminophen (Tylenol) 650 mg Q6HRS NG ; Start 01/08/17 at 12:00; Stop 01/09/17 at 11:59 Acetaminophen (Tylenol) 650 mg PRN Q6HRS PRN [place] MILD PAIN / TEMP; Start at 12:00 Acetaminophen (Tylenol) 650 mg PRN Q6HRS PRN NG MILD PAIN / TEMP; Start at 12:00 Info 1 ea 1 ea DAILY PRN MC PER PROTOCOL; Start 01/10/17 at 12:00 Dextrose 1,000 ml @ 250 mls/hr Q4H IV ; Start 01/08/17 at 12:15 Midazolam HCl (Versed 100mg/ 100ml Premix) 100 ml @ 0 mls/hr CONT PRN IV SEE I/ O RECORD; Start 01/08/17 at 12:45 Sodium Bicarbonate 50 meq 1X ONCE IV ; Start 01/08/17 at 13:15; Stop 01/08/17 at 13:16; Status Cancel Sodium Bicarbonate 150 meq 1X ONCE IV Last administered on 01/08/17t 13:51; Start 01/08/17 at 13:15; Stop 01/08/17 at 13:16; Status DC Active Scripts Active Reported Zofran Odt (Ondansetron) 4 Mg Tab.rapdis 1 Tab SL Q8HRS Prochlorperazine Maleate 10 Mg Tablet 25 Mg PO Q6HRS Tramadol Hcl 50 Mg Tablet 50 Mg PO Q6H PRN Levothyroxine Sodium 50 Mcg Tablet 50 Mcg PO DAILYAC Pravastatin Sodium 40 Mg Tablet 40 Mg PO DAILY Digoxin 125 Mcg Tablet 1 Tab PO DAILY Laxative Suppository (Bisacodyl) 10 Mg Supp.rect 10 Mg RC DAILY Aspirin Ec (Aspirin) 81 Mg Tablet. 1 Tab PO DAILY Allergies Allergies: Coded Allergies: No Known Drug Allergies (Unverified , 01/07/17) Physical Exam Physical Exam Intubated and sedated Vitals VITALS Vital Signs Date Time Temp Pulse Resp B/P Pulse Ox O2 Delivery O2 Flow Rate FiO2 01/08/17 14:00 95.4 120 112/58 Ventilator 95.4 01/08/17 13:45 85 01/08/17 12:34 22 01/08/17 11:30 90.0 Labs Labs Laboratory Tests Test 01/07/17 18:56 01/07/17 19:44 01/07/17 20:12 01/07/17 20:32 White Blood Count 18.8x10^3/uL (4.0-11.0) Red Blood Count 6.13x10^6/uL (4.30-5.70) Hemoglobin 17.5g/dL (13.0-17.5) Hematocrit 52.7% (39.0-53.0) Mean Corpuscular Volume 86fL (79-100) Mean Corpuscular Hemoglobin 29pg (25-35) Mean Corpuscular Hemoglobin Concent 33g/dL (31-37) Red Cell Distribution Width 14.1% (11.5-14.5) Platelet Count 372x10^3/uL (140-400) Neutrophils (%) (Auto) 76% (31-73) Lymphocytes (%) (Auto) 12% (24-48) Monocytes (%) (Auto) 12% (0-9) Eosinophils (%) (Auto) 0% (0-3) Basophils (%) (Auto) 0% (0-3) Neutrophils # (Auto) 14.3x10^3uL (1.8-7.7) Lymphocytes # (Auto) 2.3x10^3/uL (1.0-4.8) Monocytes # (Auto) 2.2x10^3/uL (0.0-1.1) Eosinophils # (Auto) 0.0x10^3/uL (0.0-0.7) Basophils # (Auto) 0.0x10^3/uL (0.0-0.2) Segmented Neutrophils % 73% (35-66) Lymphocytes % 16% (24-48) Monocytes % 6% (0-10) Basophils % 4% (0-3) Metamyelocytes % 1% (0-0) Toxic Granulation Slight Platelet Estimate Increased (ADEQUATE) Platelet Clumps, EDTA Present Giant Platelets Occ Polychromasia Slight Schistocytes Occ Prothrombin Time 23.0SEC (11.7-14.0) Prothromb Time International Ratio 2.2 (0.8-1.1) Activated Partial Thromboplast Time 45SEC (24-38) Sodium Level 131mmol/L (136-145) Potassium Level 4.2mmol/L (3.5-5.1) Chloride Level 91mmol/L (98-107) Carbon Dioxide Level 25mmol/L (21-32) Anion Gap 15 (6-14) Blood Urea Nitrogen 35mg/dL (8-26) Creatinine 2.1mg/dL (0.7-1.3) Estimated GFR (Cockcroft-Gault) 30.6 Glucose Level 222mg/dL (70-99) Lactic Acid Level 5.6mmol/L (0.4-2.0) 5.6mmol/L (0.4-2.0) Calcium Level 10.3mg/dL (8.5-10.1) Total Bilirubin 1.3mg/dL (0.2-1.0) Direct Bilirubin 0.3mg/dL (0.0-0.2) Aspartate Amino Transf (AST/SGOT) 48U/L (15-37) Alanine Aminotransferase (ALT/SGPT) 74U/L (16-63) Alkaline Phosphatase 70U/L (46-116) Troponin I Quantitative < 0.017ng/mL (0.000-0.055) FA-Kky-S-Type Natriuretic Peptide 1023pg/mL (0-449) Total Protein 9.1g/dL (6.4-8.2) Albumin 4.4g/dL (3.4-5.0) Lipase 561U/L (73-393) Procalcitonin 0.79ng/mL (0.00-0.10) Influenza Type A Antigen Negative (NEGATIVE) Influenza Type B Antigen Negative (NEGATIVE) Urine Color Chhaya Urine Clarity Clear Urine pH 5.0 Urine Specific [place] 1.020 Urine Protein Negativemg/dL (NEG-TRACE) Urine Glucose (UA) Negativemg/dL (NEG) Urine Ketones (Stick) 15mg/dL (NEG) Urine Blood Negative (NEG) Urine Nitrite Negative (NEG) Urine Bilirubin Small (NEG) Urine Urobilinogen Dipstick 0.2mg/dL (0.2 mg/dL) Urine Leukocyte Esterase Negative (NEG) Urine RBC 0/HPF (0-2) Urine WBC Occ/HPF (0-4) Urine Squamous Epithelial Cells Occ/LPF Urine Amorphous Sediment Present/HPF Urine Bacteria 0/HPF (0-FEW) Urine Hyaline Casts Occasional/HPF Test 01/08/17 00:17 01/08/17 03:24 01/08/17 10:20 01/08/17 11:30 Lactic Acid Level 5.4mmol/L (0.4-2.0) 11.3mmol/L (0.4-2.0) White Blood Count 16.8x10^3/uL (4.0-11.0) Red Blood Count 5.56x10^6/uL (4.30-5.70) Hemoglobin 15.9g/dL (13.0-17.5) Hematocrit 48.2% (39.0-53.0) Mean Corpuscular Volume 87fL (79-100) Mean Corpuscular Hemoglobin 29pg (25-35) Mean Corpuscular Hemoglobin Concent 33g/dL (31-37) Red Cell Distribution Width 14.3% (11.5-14.5) Platelet Count 303x10^3/uL (140-400) Neutrophils (%) (Auto) 75% (31-73) Lymphocytes (%) (Auto) 11% (24-48) Monocytes (%) (Auto) 14% (0-9) Eosinophils (%) (Auto) 0% (0-3) Basophils (%) (Auto) 0% (0-3) Neutrophils # (Auto) 12.6x10^3uL (1.8-7.7) Lymphocytes # (Auto) 1.8x10^3/uL (1.0-4.8) Monocytes # (Auto) 2.4x10^3/uL (0.0-1.1) Eosinophils # (Auto) 0.0x10^3/uL (0.0-0.7) Basophils # (Auto) 0.0x10^3/uL (0.0-0.2) Sodium Level 134mmol/L (136-145) 140mmol/L (136-145) Potassium Level 3.7mmol/L (3.5-5.1) 3.8mmol/L (3.5-5.1) Chloride Level 96mmol/L (98-107) 103mmol/L (98-107) Carbon Dioxide Level 22mmol/L (21-32) 17mmol/L (21-32) Anion Gap 16 (6-14) 20 (6-14) Blood Urea Nitrogen 40mg/dL (8-26) 42mg/dL (8-26) Creatinine 2.1mg/dL (0.7-1.3) 2.6mg/dL (0.7-1.3) Estimated GFR (Cockcroft-Gault) 30.6 23.9 BUN/Creatinine Ratio 19 (6-20) Glucose Level 190mg/dL (70-99) 172mg/dL (70-99) Calcium Level 8.6mg/dL (8.5-10.1) 7.1mg/dL (8.5-10.1) Total Bilirubin 1.3mg/dL (0.2-1.0) 0.7mg/dL (0.2-1.0) Aspartate Amino Transf (AST/SGOT) 34U/L (15-37) 36U/L (15-37) Alanine Aminotransferase (ALT/SGPT) 59U/L (16-63) 41U/L (16-63) Alkaline Phosphatase 57U/L (46-116) 49U/L (46-116) Total Protein 7.3g/dL (6.4-8.2) 5.1g/dL (6.4-8.2) Albumin 3.4g/dL (3.4-5.0) 2.3g/dL (3.4-5.0) Albumin/Globulin Ratio 0.9 (1.0-1.7) O2 Saturation 97% (92-99) Arterial Blood pH 6.93 (7.35-7.45) Arterial Blood pCO2 at Patient Temp 69mmHg (35-46) Arterial Blood pO2 at Patient Temp 137mmHg (65-108) Arterial Blood HCO3 14mmol/L (21-28) Arterial Blood Base Excess -19mmol/L (-3-3) FiO2 100 Phosphorus Level 7.0mg/dL (2.6-4.7) Direct Bilirubin 0.3mg/dL (0.0-0.2) Amylase Level 127U/L (25-115) Thyroid Stimulating Hormone (TSH) 3.805uIU/mL (0.358-3.74) Test 01/08/17 12:21 01/08/17 12:27 01/08/17 13:30 O2 Saturation 79% (92-99) Arterial Blood pH 7.11 (7.35-7.45) Arterial Blood pCO2 at Patient Temp 52mmHg (35-46) Arterial Blood pO2 at Patient Temp 56mmHg (65-108) Arterial Blood HCO3 16mmol/L (21-28) Arterial Blood Base Excess -14mmol/L (-3-3) FiO2 100 Glucose (Fingerstick) 97mg/dL (70-99) White Blood Count 1.1x10^3/uL (4.0-11.0) Red Blood Count 4.59x10^6/uL (4.30-5.70) Hemoglobin 13.6g/dL (13.0-17.5) Hematocrit 40.3% (39.0-53.0) Mean Corpuscular Volume 88fL (79-100) Mean Corpuscular Hemoglobin 30pg (25-35) Mean Corpuscular Hemoglobin Concent 34g/dL (31-37) Red Cell Distribution Width 14.2% (11.5-14.5) Platelet Count 206x10^3/uL (140-400) Neutrophils (%) (Auto) 63% (31-73) Lymphocytes (%) (Auto) 32% (24-48) Monocytes (%) (Auto) 5% (0-9) Eosinophils (%) (Auto) 1% (0-3) Basophils (%) (Auto) 1% (0-3) Neutrophils # (Auto) 0.7x10^3uL (1.8-7.7) Lymphocytes # (Auto) 0.3x10^3/uL (1.0-4.8) Monocytes # (Auto) 0.0x10^3/uL (0.0-1.1) Eosinophils # (Auto) 0.0x10^3/uL (0.0-0.7) Basophils # (Auto) 0.0x10^3/uL (0.0-0.2) Prothrombin Time 19.8SEC (11.7-14.0) Prothromb Time International Ratio 1.8 (0.8-1.1) Sodium Level 145mmol/L (136-145) Laboratory Tests Test 01/07/17 18:56 01/07/17 19:44 01/07/17 20:12 01/07/17 20:32 White Blood Count 18.8x10^3/uL (4.0-11.0) Red Blood Count 6.13x10^6/uL (4.30-5.70) Hemoglobin 17.5g/dL (13.0-17.5) Hematocrit 52.7% (39.0-53.0) Mean Corpuscular Volume 86fL (79-100) Mean Corpuscular Hemoglobin 29pg (25-35) Mean Corpuscular Hemoglobin Concent 33g/dL (31-37) Red Cell Distribution Width 14.1% (11.5-14.5) Platelet Count 372x10^3/uL (140-400) Neutrophils (%) (Auto) 76% (31-73) Lymphocytes (%) (Auto) 12% (24-48) Monocytes (%) (Auto) 12% (0-9) Eosinophils (%) (Auto) 0% (0-3) Basophils (%) (Auto) 0% (0-3) Neutrophils # (Auto) 14.3x10^3uL (1.8-7.7) Lymphocytes # (Auto) 2.3x10^3/uL (1.0-4.8) Monocytes # (Auto) 2.2x10^3/uL (0.0-1.1) Eosinophils # (Auto) 0.0x10^3/uL (0.0-0.7) Basophils # (Auto) 0.0x10^3/uL (0.0-0.2) Segmented Neutrophils % 73% (35-66) Lymphocytes % 16% (24-48) Monocytes % 6% (0-10) Basophils % 4% (0-3) Metamyelocytes % 1% (0-0) Toxic Granulation Slight Platelet Estimate Increased (ADEQUATE) Platelet Clumps, EDTA Present Giant Platelets Occ Polychromasia Slight Schistocytes Occ Prothrombin Time 23.0SEC (11.7-14.0) Prothromb Time International Ratio 2.2 (0.8-1.1) Activated Partial Thromboplast Time 45SEC (24-38) Sodium Level 131mmol/L (136-145) Potassium Level 4.2mmol/L (3.5-5.1) Chloride Level 91mmol/L (98-107) Carbon Dioxide Level 25mmol/L (21-32) Anion Gap 15 (6-14) Blood Urea Nitrogen 35mg/dL (8-26) Creatinine 2.1mg/dL (0.7-1.3) Estimated GFR (Cockcroft-Gault) 30.6 Glucose Level 222mg/dL (70-99) Lactic Acid Level 5.6mmol/L (0.4-2.0) 5.6mmol/L (0.4-2.0) Calcium Level 10.3mg/dL (8.5-10.1) Total Bilirubin 1.3mg/dL (0.2-1.0) Direct Bilirubin 0.3mg/dL (0.0-0.2) Aspartate Amino Transf (AST/SGOT) 48U/L (15-37) Alanine Aminotransferase (ALT/SGPT) 74U/L (16-63) Alkaline Phosphatase 70U/L (46-116) Troponin I Quantitative < 0.017ng/mL (0.000-0.055) SL-Gku-T-Type Natriuretic Peptide 1023pg/mL (0-449) Total Protein 9.1g/dL (6.4-8.2) Albumin 4.4g/dL (3.4-5.0) Lipase 561U/L (73-393) Procalcitonin 0.79ng/mL (0.00-0.10) Influenza Type A Antigen Negative (NEGATIVE) Influenza Type B Antigen Negative (NEGATIVE) Urine Color Chhaya Urine Clarity Clear Urine pH 5.0 Urine Specific [place] 1.020 Urine Protein Negativemg/dL (NEG-TRACE) Urine Glucose (UA) Negativemg/dL (NEG) Urine Ketones (Stick) 15mg/dL (NEG) Urine Blood Negative (NEG) Urine Nitrite Negative (NEG) Urine Bilirubin Small (NEG) Urine Urobilinogen Dipstick 0.2mg/dL (0.2 mg/dL) Urine Leukocyte Esterase Negative (NEG) Urine RBC 0/HPF (0-2) Urine WBC Occ/HPF (0-4) Urine Squamous Epithelial Cells Occ/LPF Urine Amorphous Sediment Present/HPF Urine Bacteria 0/HPF (0-FEW) Urine Hyaline Casts Occasional/HPF Test 01/08/17 00:17 01/08/17 03:24 01/08/17 10:20 01/08/17 11:30 Lactic Acid Level 5.4mmol/L (0.4-2.0) 11.3mmol/L (0.4-2.0) White Blood Count 16.8x10^3/uL (4.0-11.0) Red Blood Count 5.56x10^6/uL (4.30-5.70) Hemoglobin 15.9g/dL (13.0-17.5) Hematocrit 48.2% (39.0-53.0) Mean Corpuscular Volume 87fL (79-100) Mean Corpuscular Hemoglobin 29pg (25-35) Mean Corpuscular Hemoglobin Concent 33g/dL (31-37) Red Cell Distribution Width 14.3% (11.5-14.5) Platelet Count 303x10^3/uL (140-400) Neutrophils (%) (Auto) 75% (31-73) Lymphocytes (%) (Auto) 11% (24-48) Monocytes (%) (Auto) 14% (0-9) Eosinophils (%) (Auto) 0% (0-3) Basophils (%) (Auto) 0% (0-3) Neutrophils # (Auto) 12.6x10^3uL (1.8-7.7) Lymphocytes # (Auto) 1.8x10^3/uL (1.0-4.8) Monocytes # (Auto) 2.4x10^3/uL (0.0-1.1) Eosinophils # (Auto) 0.0x10^3/uL (0.0-0.7) Basophils # (Auto) 0.0x10^3/uL (0.0-0.2) Sodium Level 134mmol/L (136-145) 140mmol/L (136-145) Potassium Level 3.7mmol/L (3.5-5.1) 3.8mmol/L (3.5-5.1) Chloride Level 96mmol/L (98-107) 103mmol/L (98-107) Carbon Dioxide Level 22mmol/L (21-32) 17mmol/L (21-32) Anion Gap 16 (6-14) 20 (6-14) Blood Urea Nitrogen 40mg/dL (8-26) 42mg/dL (8-26) Creatinine 2.1mg/dL (0.7-1.3) 2.6mg/dL (0.7-1.3) Estimated GFR (Cockcroft-Gault) 30.6 23.9 BUN/Creatinine Ratio 19 (6-20) Glucose Level 190mg/dL (70-99) 172mg/dL (70-99) Calcium Level 8.6mg/dL (8.5-10.1) 7.1mg/dL (8.5-10.1) Total Bilirubin 1.3mg/dL (0.2-1.0) 0.7mg/dL (0.2-1.0) Aspartate Amino Transf (AST/SGOT) 34U/L (15-37) 36U/L (15-37) Alanine Aminotransferase (ALT/SGPT) 59U/L (16-63) 41U/L (16-63) Alkaline Phosphatase 57U/L (46-116) 49U/L (46-116) Total Protein 7.3g/dL (6.4-8.2) 5.1g/dL (6.4-8.2) Albumin 3.4g/dL (3.4-5.0) 2.3g/dL (3.4-5.0) Albumin/Globulin Ratio 0.9 (1.0-1.7) O2 Saturation 97% (92-99) Arterial Blood pH 6.93 (7.35-7.45) Arterial Blood pCO2 at Patient Temp 69mmHg (35-46) Arterial Blood pO2 at Patient Temp 137mmHg (65-108) Arterial Blood HCO3 14mmol/L (21-28) Arterial Blood Base Excess -19mmol/L (-3-3) FiO2 100 Phosphorus Level 7.0mg/dL (2.6-4.7) Direct Bilirubin 0.3mg/dL (0.0-0.2) Amylase Level 127U/L (25-115) Thyroid Stimulating Hormone (TSH) 3.805uIU/mL (0.358-3.74) Test 01/08/17 12:21 01/08/17 12:27 01/08/17 13:30 O2 Saturation 79% (92-99) Arterial Blood pH 7.11 (7.35-7.45) Arterial Blood pCO2 at Patient Temp 52mmHg (35-46) Arterial Blood pO2 at Patient Temp 56mmHg (65-108) Arterial Blood HCO3 16mmol/L (21-28) Arterial Blood Base Excess -14mmol/L (-3-3) FiO2 100 Glucose (Fingerstick) 97mg/dL (70-99) White Blood Count 1.1x10^3/uL (4.0-11.0) Red Blood Count 4.59x10^6/uL (4.30-5.70) Hemoglobin 13.6g/dL (13.0-17.5) Hematocrit 40.3% (39.0-53.0) Mean Corpuscular Volume 88fL (79-100) Mean Corpuscular Hemoglobin 30pg (25-35) Mean Corpuscular Hemoglobin Concent 34g/dL (31-37) Red Cell Distribution Width 14.2% (11.5-14.5) Platelet Count 206x10^3/uL (140-400) Neutrophils (%) (Auto) 63% (31-73) Lymphocytes (%) (Auto) 32% (24-48) Monocytes (%) (Auto) 5% (0-9) Eosinophils (%) (Auto) 1% (0-3) Basophils (%) (Auto) 1% (0-3) Neutrophils # (Auto) 0.7x10^3uL (1.8-7.7) Lymphocytes # (Auto) 0.3x10^3/uL (1.0-4.8) Monocytes # (Auto) 0.0x10^3/uL (0.0-1.1) Eosinophils # (Auto) 0.0x10^3/uL (0.0-0.7) Basophils # (Auto) 0.0x10^3/uL (0.0-0.2) Prothrombin Time 19.8SEC (11.7-14.0) Prothromb Time International Ratio 1.8 (0.8-1.1) Sodium Level 145mmol/L (136-145) Assessment/Plan Assessment/Plan Assessment Post cardiac arrest ARF - Aspiration - ARDS Possible obstruction / ileus Pancreatitis Metabolic acidosis NIKO Plan Therapeutic hypothermia Maintain airway - Intubated and sedated Maintain fluid status Pressors per BP Arterial line placed Surgery, pulm, ID consulted Monitor labs - CBC with diff and CMP Follow lactic acid Amylase and lipase Liver enzymes Thank you very much for involving me in the care of this patient. JAJA PRETTY MD Jan 08, 2017 15:08
[2017-01-08 15:38] LABS: BODY TEMP ABG 91.2 DEG; CORRECTED PCO2 ABG 36 mmHg; CORRECTED PH ABG 7.18; CORRECTED PO2 ABG 30 mmHg; HCO3 ABG 14 mmol/L (21-28)
[2017-01-08 15:39] LABS: SAT O2 ABG 63 % (92-99)
[2017-01-08 15:41] LABS: PCO2 ABG 43 mmHg (35-46); PH ABG 7.13 (7.35-7.45); PO2 ABG 40 mmHg (65-108)
--- NOTE | 2017-01-08 15:59 | RAD ---
Indication hypoxia. A single view of the chest was obtained at 1547 and is compared to a study approximately 5 hours earlier. There are extensive pulmonary infiltrates. These are much worse than on the previous exam. Findings may reflect pulmonary edema ARDS or hemorrhage. A component of infection is not entirely excluded. Endotracheal tube is appropriately positioned above the daisy. Nasogastric tube is coiled in the fundus of the stomach. A left IJ catheter is noted. There is no pneumothorax. IMPRESSION: Widespread pulmonary infiltrates much worse than on the study 5 hours earlier
[2017-01-08 17:28] LABS: % EOS 2 % (0-5)
[2017-01-08 17:29] LABS: PLT ESTIMATE ADEQUATE (ADEQUATE)
--- NOTE | 2017-01-08 18:55 | CARD ---
APPROVED REPORT EXAM: LIMITED Two-dimensional and M-mode echocardiogram. Other Information Quality : Technically Limited Rhythm : TachycardiaTechnically limited study due to CABG and positioning. INDICATION Post arrest 2D DIMENSIONS LVEF(%)50.0 (>50%) M-Mode DIMENSIONS IVSd1.33 (0.7-1.1cm)LVDd2.93 (4.0-5.6cm) PWd1.37 (0.7-1.1cm)FS (%) 23 % ESV(Teich)20.9 mlLVEF(%)50 (>50%) Tricuspid Valve TR P. [id number] TR Peak [id number] LEFT VENTRICLE The left ventricle is normal size. There is concentric left ventricular hypertrophy. Left ventricle s ystolic function is low normal. The Ejection Fraction is 50%. There is normal LV segmental wall motio n. Unable to assess. RIGHT VENTRICLE The right ventricle is normal size. Mild right ventricular hypertrophy The right ventricular systolic function is normal. ATRIA The left atrium size is normal. The right atrium size is normal. AORTIC VALVE The aortic valve is calcified but opens well. The aortic valve is trileaflet. Doppler and Color Flow revealed no significant aortic regurgitation. Unable to assess for aortic stenosis due to the inabili ty to do a proper Doppler interrogation on this patient at this time MITRAL VALVE Mitral annular calcification is mild. TRICUSPID VALVE The tricuspid valve is normal in structure. Doppler and Color Flow revealed moderate tricuspid regurg itation. The PA pressure was estimated at 50 mmHg. PULMONIC VALVE The pulmonic valve is not well visualized. Doppler and Color Flow revealed no pulmonic valvular regur gitation. GREAT VESSELS The aortic root is normal in size. The IVC is dilated and collapses <50% with inspiration. PERICARDIAL EFFUSION There is no evidence of significant pericardial effusion. Critical Notification Critical Value: No <Conclusion> Left ventricle systolic function is low normal. The Ejection Fraction is 50%. There is concentric left ventricular hypertrophy. Mild right ventricular hypertrophy The left atrium size is normal. The right atrium size is normal. Unable to assess for aortic stenosis due to the inability to do a proper Doppler interrogation on thi s patient at this time Doppler and Color Flow revealed moderate tricuspid regurgitation. The PA pressure was estimated at 50 mmHg. The pulmonic valve is not well visualized. There is no evidence of significant pericardial effusion.
--- NOTE | 2017-01-08 19:12 | PDOC ---
PROGRESS NOTES Objective Objective Vital Signs Date Time Temp Pulse Resp B/P Pulse Ox O2 Delivery O2 Flow Rate FiO2 01/08/17 16:57 0 0/0 Room Air 01/08/17 16:45 24 01/08/17 16:00 91.3 91.3 01/08/17 12:34 22 01/08/17 11:30 90.0 Intake and Output 01/08/17 07:00 Intake Total 4650 ml Output Total 0 ml Balance 4650 ml Intake Oral 550 ml IV Total 4100 ml Output Urine Total 0 ml # Voids 1 Assessment Assessment The patient's condition has deteriorated tremendously and is in full ARDS and unable to achieve much gas exchange. The patient's family wanted him to be a DNR and the drips were stopped. I was in the room with the patient's family when he and he was pronounced at 4:57 PM. Patient's family present and informed. Problems Medical Problems: (1) Dehydration Status: Acute (2) Lactic acidosis Status: Acute (3) Nausea vomiting and diarrhea Status: Acute (4) Uremia Status: Acute Comment Review of Relevant I have reviewed the following items winston (where applicable) has been applied. Labs Laboratory Tests Test 01/07/17 18:56 01/07/17 19:44 01/07/17 20:12 01/07/17 20:32 White Blood Count 18.8x10^3/uL (4.0-11.0) Red Blood Count 6.13x10^6/uL (4.30-5.70) Hemoglobin 17.5g/dL (13.0-17.5) Hematocrit 52.7% (39.0-53.0) Mean Corpuscular Volume 86fL (79-100) Mean Corpuscular Hemoglobin 29pg (25-35) Mean Corpuscular Hemoglobin Concent 33g/dL (31-37) Red Cell Distribution Width 14.1% (11.5-14.5) Platelet Count 372x10^3/uL (140-400) Neutrophils (%) (Auto) 76% (31-73) Lymphocytes (%) (Auto) 12% (24-48) Monocytes (%) (Auto) 12% (0-9) Eosinophils (%) (Auto) 0% (0-3) Basophils (%) (Auto) 0% (0-3) Neutrophils # (Auto) 14.3x10^3uL (1.8-7.7) Lymphocytes # (Auto) 2.3x10^3/uL (1.0-4.8) Monocytes # (Auto) 2.2x10^3/uL (0.0-1.1) Eosinophils # (Auto) 0.0x10^3/uL (0.0-0.7) Basophils # (Auto) 0.0x10^3/uL (0.0-0.2) Segmented Neutrophils % 73% (35-66) Lymphocytes % 16% (24-48) Monocytes % 6% (0-10) Basophils % 4% (0-3) Metamyelocytes % 1% (0-0) Toxic Granulation Slight Platelet Estimate Increased (ADEQUATE) Platelet Clumps, EDTA Present Giant Platelets Occ Polychromasia Slight Schistocytes Occ Prothrombin Time 23.0SEC (11.7-14.0) Prothromb Time International Ratio 2.2 (0.8-1.1) Activated Partial Thromboplast Time 45SEC (24-38) Sodium Level 131mmol/L (136-145) Potassium Level 4.2mmol/L (3.5-5.1) Chloride Level 91mmol/L (98-107) Carbon Dioxide Level 25mmol/L (21-32) Anion Gap 15 (6-14) Blood Urea Nitrogen 35mg/dL (8-26) Creatinine 2.1mg/dL (0.7-1.3) Estimated GFR (Cockcroft-Gault) 30.6 Glucose Level 222mg/dL (70-99) Lactic Acid Level 5.6mmol/L (0.4-2.0) 5.6mmol/L (0.4-2.0) Calcium Level 10.3mg/dL (8.5-10.1) Total Bilirubin 1.3mg/dL (0.2-1.0) Direct Bilirubin 0.3mg/dL (0.0-0.2) Aspartate Amino Transf (AST/SGOT) 48U/L (15-37) Alanine Aminotransferase (ALT/SGPT) 74U/L (16-63) Alkaline Phosphatase 70U/L (46-116) Troponin I Quantitative < 0.017ng/mL (0.000-0.055) BC-Vcj-Z-Type Natriuretic Peptide 1023pg/mL (0-449) Total Protein 9.1g/dL (6.4-8.2) Albumin 4.4g/dL (3.4-5.0) Lipase 561U/L (73-393) Procalcitonin 0.79ng/mL (0.00-0.10) Influenza Type A Antigen Negative (NEGATIVE) Influenza Type B Antigen Negative (NEGATIVE) Urine Color Chhaya Urine Clarity Clear Urine pH 5.0 Urine Specific [place] 1.020 Urine Protein Negativemg/dL (NEG-TRACE) Urine Glucose (UA) Negativemg/dL (NEG) Urine Ketones (Stick) 15mg/dL (NEG) Urine Blood Negative (NEG) Urine Nitrite Negative (NEG) Urine Bilirubin Small (NEG) Urine Urobilinogen Dipstick 0.2mg/dL (0.2 mg/dL) Urine Leukocyte Esterase Negative (NEG) Urine RBC 0/HPF (0-2) Urine WBC Occ/HPF (0-4) Urine Squamous Epithelial Cells Occ/LPF Urine Amorphous Sediment Present/HPF Urine Bacteria 0/HPF (0-FEW) Urine Hyaline Casts Occasional/HPF Test 01/08/17 00:17 01/08/17 03:24 01/08/17 10:20 01/08/17 11:30 Lactic Acid Level 5.4mmol/L (0.4-2.0) 11.3mmol/L (0.4-2.0) White Blood Count 16.8x10^3/uL (4.0-11.0) Red Blood Count 5.56x10^6/uL (4.30-5.70) Hemoglobin 15.9g/dL (13.0-17.5) Hematocrit 48.2% (39.0-53.0) Mean Corpuscular Volume 87fL (79-100) Mean Corpuscular Hemoglobin 29pg (25-35) Mean Corpuscular Hemoglobin Concent 33g/dL (31-37) Red Cell Distribution Width 14.3% (11.5-14.5) Platelet Count 303x10^3/uL (140-400) Neutrophils (%) (Auto) 75% (31-73) Lymphocytes (%) (Auto) 11% (24-48) Monocytes (%) (Auto) 14% (0-9) Eosinophils (%) (Auto) 0% (0-3) Basophils (%) (Auto) 0% (0-3) Neutrophils # (Auto) 12.6x10^3uL (1.8-7.7) Lymphocytes # (Auto) 1.8x10^3/uL (1.0-4.8) Monocytes # (Auto) 2.4x10^3/uL (0.0-1.1) Eosinophils # (Auto) 0.0x10^3/uL (0.0-0.7) Basophils # (Auto) 0.0x10^3/uL (0.0-0.2) Sodium Level 134mmol/L (136-145) 140mmol/L (136-145) Potassium Level 3.7mmol/L (3.5-5.1) 3.8mmol/L (3.5-5.1) Chloride Level 96mmol/L (98-107) 103mmol/L (98-107) Carbon Dioxide Level 22mmol/L (21-32) 17mmol/L (21-32) Anion Gap 16 (6-14) 20 (6-14) Blood Urea Nitrogen 40mg/dL (8-26) 42mg/dL (8-26) Creatinine 2.1mg/dL (0.7-1.3) 2.6mg/dL (0.7-1.3) Estimated GFR (Cockcroft-Gault) 30.6 23.9 BUN/Creatinine Ratio 19 (6-20) Glucose Level 190mg/dL (70-99) 172mg/dL (70-99) Calcium Level 8.6mg/dL (8.5-10.1) 7.1mg/dL (8.5-10.1) Total Bilirubin 1.3mg/dL (0.2-1.0) 0.7mg/dL (0.2-1.0) Aspartate Amino Transf (AST/SGOT) 34U/L (15-37) 36U/L (15-37) Alanine Aminotransferase (ALT/SGPT) 59U/L (16-63) 41U/L (16-63) Alkaline Phosphatase 57U/L (46-116) 49U/L (46-116) Total Protein 7.3g/dL (6.4-8.2) 5.1g/dL (6.4-8.2) Albumin 3.4g/dL (3.4-5.0) 2.3g/dL (3.4-5.0) Albumin/Globulin Ratio 0.9 (1.0-1.7) O2 Saturation 97% (92-99) Arterial Blood pH 6.93 (7.35-7.45) Arterial Blood pCO2 at Patient Temp 69mmHg (35-46) Arterial Blood pO2 at Patient Temp 137mmHg (65-108) Arterial Blood HCO3 14mmol/L (21-28) Arterial Blood Base Excess -19mmol/L (-3-3) FiO2 100 Phosphorus Level 7.0mg/dL (2.6-4.7) Direct Bilirubin 0.3mg/dL (0.0-0.2) Amylase Level 127U/L (25-115) Lipase 2129U/L (73-393) Thyroid Stimulating Hormone (TSH) 3.805uIU/mL (0.358-3.74) Test 01/08/17 12:21 01/08/17 12:27 01/08/17 13:30 01/08/17 15:15 O2 Saturation 79% (92-99) 63% (92-99) Arterial Blood pH 7.11 (7.35-7.45) 7.13 (7.35-7.45) Arterial Blood pCO2 at Patient Temp 52mmHg (35-46) 43mmHg (35-46) Arterial Blood pO2 at Patient Temp 56mmHg (65-108) 40mmHg (65-108) Arterial Blood HCO3 16mmol/L (21-28) 14mmol/L (21-28) Arterial Blood Base Excess -14mmol/L (-3-3) -15mmol/L (-3-3) FiO2 100 Glucose (Fingerstick) 97mg/dL (70-99) White Blood Count 1.1x10^3/uL (4.0-11.0) Red Blood Count 4.59x10^6/uL (4.30-5.70) Hemoglobin 13.6g/dL (13.0-17.5) Hematocrit 40.3% (39.0-53.0) Mean Corpuscular Volume 88fL (79-100) Mean Corpuscular Hemoglobin 30pg (25-35) Mean Corpuscular Hemoglobin Concent 34g/dL (31-37) Red Cell Distribution Width 14.2% (11.5-14.5) Platelet Count 206x10^3/uL (140-400) Neutrophils (%) (Auto) 63% (31-73) Lymphocytes (%) (Auto) 32% (24-48) Monocytes (%) (Auto) 5% (0-9) Eosinophils (%) (Auto) 1% (0-3) Basophils (%) (Auto) 1% (0-3) Neutrophils # (Auto) 0.7x10^3uL (1.8-7.7) Lymphocytes # (Auto) 0.3x10^3/uL (1.0-4.8) Monocytes # (Auto) 0.0x10^3/uL (0.0-1.1) Eosinophils # (Auto) 0.0x10^3/uL (0.0-0.7) Basophils # (Auto) 0.0x10^3/uL (0.0-0.2) Segmented Neutrophils % 14% (35-66) Band Neutrophils % 24% (0-9) Lymphocytes % 48% (24-48) Monocytes % 5% (0-10) Eosinophils % 2% (0-5) Metamyelocytes % 4% (0-0) Myelocytes % 3% (0-0) Platelet Estimate Adequate (ADEQUATE) Giant Platelets Occ Prothrombin Time 19.8SEC (11.7-14.0) Prothromb Time International Ratio 1.8 (0.8-1.1) Sodium Level 145mmol/L (136-145) Arterial Blood pH (Temp corrected) 7.18 Arterial Blood pCO2 (Temp correct) 36mmHg Arterial Blood pO2 (Temp corrected) 30mmHg Laboratory Tests Test 01/07/17 19:44 01/07/17 20:12 01/07/17 20:32 01/08/17 00:17 Influenza Type A Antigen Negative (NEGATIVE) Influenza Type B Antigen Negative (NEGATIVE) Lactic Acid Level 5.6mmol/L (0.4-2.0) 5.4mmol/L (0.4-2.0) Urine Color Chhaya Urine Clarity Clear Urine pH 5.0 Urine Specific [place] 1.020 Urine Protein Negativemg/dL (NEG-TRACE) Urine Glucose (UA) Negativemg/dL (NEG) Urine Ketones (Stick) 15mg/dL (NEG) Urine Blood Negative (NEG) Urine Nitrite Negative (NEG) Urine Bilirubin Small (NEG) Urine Urobilinogen Dipstick 0.2mg/dL (0.2 mg/dL) Urine Leukocyte Esterase Negative (NEG) Urine RBC 0/HPF (0-2) Urine WBC Occ/HPF (0-4) Urine Squamous Epithelial Cells Occ/LPF Urine Amorphous Sediment Present/HPF Urine Bacteria 0/HPF (0-FEW) Urine Hyaline Casts Occasional/HPF Test 01/08/17 03:24 01/08/17 10:20 01/08/17 11:30 01/08/17 12:21 White Blood Count 16.8x10^3/uL (4.0-11.0) Red Blood Count 5.56x10^6/uL (4.30-5.70) Hemoglobin 15.9g/dL (13.0-17.5) Hematocrit 48.2% (39.0-53.0) Mean Corpuscular Volume 87fL (79-100) Mean Corpuscular Hemoglobin 29pg (25-35) Mean Corpuscular Hemoglobin Concent 33g/dL (31-37) Red Cell Distribution Width 14.3% (11.5-14.5) Platelet Count 303x10^3/uL (140-400) Neutrophils (%) (Auto) 75% (31-73) Lymphocytes (%) (Auto) 11% (24-48) Monocytes (%) (Auto) 14% (0-9) Eosinophils (%) (Auto) 0% (0-3) Basophils (%) (Auto) 0% (0-3) Neutrophils # (Auto) 12.6x10^3uL (1.8-7.7) Lymphocytes # (Auto) 1.8x10^3/uL (1.0-4.8) Monocytes # (Auto) 2.4x10^3/uL (0.0-1.1) Eosinophils # (Auto) 0.0x10^3/uL (0.0-0.7) Basophils # (Auto) 0.0x10^3/uL (0.0-0.2) Sodium Level 134mmol/L (136-145) 140mmol/L (136-145) Potassium Level 3.7mmol/L (3.5-5.1) 3.8mmol/L (3.5-5.1) Chloride Level 96mmol/L (98-107) 103mmol/L (98-107) Carbon Dioxide Level 22mmol/L (21-32) 17mmol/L (21-32) Anion Gap 16 (6-14) 20 (6-14) Blood Urea Nitrogen 40mg/dL (8-26) 42mg/dL (8-26) Creatinine 2.1mg/dL (0.7-1.3) 2.6mg/dL (0.7-1.3) Estimated GFR (Cockcroft-Gault) 30.6 23.9 BUN/Creatinine Ratio 19 (6-20) Glucose Level 190mg/dL (70-99) 172mg/dL (70-99) Calcium Level 8.6mg/dL (8.5-10.1) 7.1mg/dL (8.5-10.1) Total Bilirubin 1.3mg/dL (0.2-1.0) 0.7mg/dL (0.2-1.0) Aspartate Amino Transf (AST/SGOT) 34U/L (15-37) 36U/L (15-37) Alanine Aminotransferase (ALT/SGPT) 59U/L (16-63) 41U/L (16-63) Alkaline Phosphatase 57U/L (46-116) 49U/L (46-116) Total Protein 7.3g/dL (6.4-8.2) 5.1g/dL (6.4-8.2) Albumin 3.4g/dL (3.4-5.0) 2.3g/dL (3.4-5.0) Albumin/Globulin Ratio 0.9 (1.0-1.7) O2 Saturation 97% (92-99) 79% (92-99) Arterial Blood pH 6.93 (7.35-7.45) 7.11 (7.35-7.45) Arterial Blood pCO2 at Patient Temp 69mmHg (35-46) 52mmHg (35-46) Arterial Blood pO2 at Patient Temp 137mmHg (65-108) 56mmHg (65-108) Arterial Blood HCO3 14mmol/L (21-28) 16mmol/L (21-28) Arterial Blood Base Excess -19mmol/L (-3-3) -14mmol/L (-3-3) FiO2 100 100 Lactic Acid Level 11.3mmol/L (0.4-2.0) Phosphorus Level 7.0mg/dL (2.6-4.7) Direct Bilirubin 0.3mg/dL (0.0-0.2) Amylase Level 127U/L (25-115) Lipase 2129U/L (73-393) Thyroid Stimulating Hormone (TSH) 3.805uIU/mL (0.358-3.74) Test 01/08/17 12:27 01/08/17 13:30 01/08/17 15:15 Glucose (Fingerstick) 97mg/dL (70-99) White Blood Count 1.1x10^3/uL (4.0-11.0) Red Blood Count 4.59x10^6/uL (4.30-5.70) Hemoglobin 13.6g/dL (13.0-17.5) Hematocrit 40.3% (39.0-53.0) Mean Corpuscular Volume 88fL (79-100) Mean Corpuscular Hemoglobin 30pg (25-35) Mean Corpuscular Hemoglobin Concent 34g/dL (31-37) Red Cell Distribution Width 14.2% (11.5-14.5) Platelet Count 206x10^3/uL (140-400) Neutrophils (%) (Auto) 63% (31-73) Lymphocytes (%) (Auto) 32% (24-48) Monocytes (%) (Auto) 5% (0-9) Eosinophils (%) (Auto) 1% (0-3) Basophils (%) (Auto) 1% (0-3) Neutrophils # (Auto) 0.7x10^3uL (1.8-7.7) Lymphocytes # (Auto) 0.3x10^3/uL (1.0-4.8) Monocytes # (Auto) 0.0x10^3/uL (0.0-1.1) Eosinophils # (Auto) 0.0x10^3/uL (0.0-0.7) Basophils # (Auto) 0.0x10^3/uL (0.0-0.2) Segmented Neutrophils % 14% (35-66) Band Neutrophils % 24% (0-9) Lymphocytes % 48% (24-48) Monocytes % 5% (0-10) Eosinophils % 2% (0-5) Metamyelocytes % 4% (0-0) Myelocytes % 3% (0-0) Platelet Estimate Adequate (ADEQUATE) Giant Platelets Occ Prothrombin Time 19.8SEC (11.7-14.0) Prothromb Time International Ratio 1.8 (0.8-1.1) Sodium Level 145mmol/L (136-145) O2 Saturation 63% (92-99) Arterial Blood pH 7.13 (7.35-7.45) Arterial Blood pH (Temp corrected) 7.18 Arterial Blood pCO2 at Patient Temp 43mmHg (35-46) Arterial Blood pCO2 (Temp correct) 36mmHg Arterial Blood pO2 at Patient Temp 40mmHg (65-108) Arterial Blood pO2 (Temp corrected) 30mmHg Arterial Blood HCO3 14mmol/L (21-28) Arterial Blood Base Excess -15mmol/L (-3-3) Medications Current Medications Sodium Chloride (Iv Sodium Chloride 0.9% 500ml Bag) 500 ml @ 500 mls/hr 1X ONCE IV Last administered on 01/07/17 19:31; Start 01/07/17 at 19:30; Stop at 20:29; Status DC Ondansetron HCl (Zofran) 4 mg PRN Q30MIN PRN IV NAUSEA/VOMITING Last administered on 01/07/17 19:31; Start 01/07/17 at 19:30; Stop 01/07/17 at 23:00; Status DC Ondansetron HCl (Zofran) 4 mg PRN Q8HRS PRN IV NAUSEA/VOMITING Last administered on 01/08/17 00:42; Start 01/07/17 at 21:15; Stop 01/08/17 at 21:14 Morphine Sulfate 2 mg 2 mg PRN Q2HR PRN IV SEVERE PAIN Last administered on 01/07 23:36; Start 01/07/17 at 21:15; Stop 01/08/17 at 21:14 Sodium Chloride (Iv Sodium Chloride 0.9% 1000ml Bag) 1,000 ml @ 125 mls/hr Q8H IV Last administered on 01/08/17 06:12; Start 01/07/17 at 21:04; Stop 01/08/17 at 12:07; Status DC Vancomycin HCl (Vanco Per Pharmacy) 1 each PRN DAILY PRN MC SEE COMMENTS Last administered on 01/08/17 13:47; Start 01/07/17 at 21:15 Piperacillin Sod/ Tazobactam Sod 1 each 1 each PRN DAILY PRN MC SEE COMMENTS; Start 01/07/17 at 21:15 Vancomycin HCl 2 gm/Sodium Chloride 500 ml @ 250 mls/hr 1X ONCE IV Last administered on 01/07/17 23:35; Start 01/07/17 at 22:00; Stop 01/07/17 at 23:59; Status DC Piperacillin Sod/ Tazobactam Sod 2.25 gm/Sodium Chloride 50 ml @ 100 mls/hr Q6HRS IV Last administered on 01/08/17 15:16; Start 01/07/17 at 21:30 Sodium Chloride 1,000 ml @ 765 mls/hr Q1H19M IV Last administered on 01/07/17 21:47; Start 01/07/17 at 21:08; Stop 01/07/17 at 22:35; Status DC Sodium Chloride 500 ml @ 1,000 mls/hr PRN Q30MIN PRN IV SEE COMMENTS; Start at 21:15 Sodium Chloride 1,000 ml @ 765 mls/hr Q1H19M PRN IV SEE COMMENTS; Start at 22:33; Status UNV Vancomycin HCl/ Sodium Chloride (Iv Sodium Chloride 0.9% 500ml Bag) 500 ml @ 250 mls/hr Q24H IV ; Start 01/08/17 at 22:00 Vancomycin HCl 1 each 1 each 1X ONCE MC ; Start 01/09/17 at 21:30; Stop 01/09/17 at 21:31 Sodium Chloride 1,000 ml @ 999 mls/hr 1X ONCE IV Last administered on 02:42; Start 01/08/17 at 03:00; Stop 01/08/17 at 04:00; Status DC Sodium Chloride 500 ml @ 499.445 mls/hr 1X ONCE IV Last administered on 02:49; Start 01/08/17 at 04:00; Stop 01/08/17 at 05:00; Status DC Epinephrine HCl/ Sodium Chloride (Adrenalin/Iv Sodium Chloride 0.9% 250ml) 254 ml @ 3.81 mls/hr ONCE ONCE IV Last administered on 01/08/17 08:45; Start 01/08 at 09:30; Stop 01/11/17 at 04:09 Insulin Aspart (Novolog) 0-7 UNITS TIDWMEALS SQ ; Start 01/08/17 at 12:00 Dextrose 12.5 gm PRN Q15MIN PRN IV SEE COMMENTS; Start 01/08/17 at 10:00 Hydrocortisone Sodium Succinate 100 mg 100 mg Q8HRS IV Last administered on 01/08 14:06; Start 01/08/17 at 10:30 Levothyroxine Sodium/Sodium Chloride (Synthroid/Iv Sodium Chloride 0.9% 50ml) 5 ml @ 100 mls/hr DAILY IVP ; Start 01/09/17 at 09:00 Lidocaine/Sodium Bicarbonate 20 ml 20 ml 1X ONCE IJ Last administered on 10:47; Start 01/08/17 at 10:30; Stop 01/08/17 at 10:31; Status DC Heparin Sodium/ Sodium Chloride 500 ml @ As Directed STK-MED ONCE .ROUTE ; Start 01/08/17 at 10:24; Stop 01/08/17 at 10:25; Status DC Heparin Sodium/ Sodium Chloride 60 unit 60 unit 1X ONCE IV Last administered on 01/08/17 10:47; Start 01/08/17 at 10:45; Stop 01/08/17 at 10:46; Status DC Midazolam HCl 100 ml @ As Directed STK-MED ONCE IV ; Start 01/08/17 at 10:56; Stop 01/08/17 at 10:57; Status DC Norepinephrine Bitartrate 8 mg/ Sodium Chloride 258 ml @ 1.93 mls/hr CONT PRN IV SEE I/O RECORD Last administered on 01/08/17 11:45; Start 01/08/17 at 11:15 Norepinephrine Bitartrate 8 mg/ Sodium Chloride 258 ml @ 0 mls/hr CONT PRN IV SEE I/O RECORD; Start 01/08/17 at 11:15; Status UNV Micafungin Sodium/ Dextrose (Mycamine) 100 ml @ 100 mls/hr Q24H IV Last administered on 01/08/17 14:11; Start 01/08/17 at 12:00 Sodium Bicarbonate 50 meq 50 meq 1X ONCE IV Last administered on 01/08/17 12: 33; Start 01/08/17 at 11:30; Stop 01/08/17 at 11:31; Status DC Albumin Human (Plasmanate) 500 ml @ 125 mls/hr 1X ONCE IV Last administered on 01/08/17 11:30; Start 01/08/17 at 11:30; Stop 01/08/17 at 15:29; Status DC Vecuronium Prince 10 mg 10 mg STK-MED ONCE IV ; Start 01/08/17 at 11:38; Stop at 11:39; Status DC Magnesium Sulfate/ Dextrose (Magnesium Sulfate PREMIX 2GM) 50 ml @ 25 mls/hr PRN DAILY PRN IV for Mag < 1.7 on am labs; Start 01/08/17 at 11:45 Acetaminophen 325 mg 325 mg 1X ONCE NV Last administered on 01/08/17 12:03; Start 01/08/17 at 12:00; Stop 01/08/17 at 12:01; Status DC Sodium Chloride (Iv Sodium Chloride 0.9% 1000ml Bag) 1,000 ml @ 1,000 mls/hr Q1H IV Last administered on 01/08/17 09:00; Start 01/08/17 at 11:48; Stop at 12:07; Status DC Fentanyl Citrate 25 mcg 25 mcg PRN Q30MIN PRN IV SED Last administered on 12:42; Start 01/08/17 at 12:00 Fentanyl Citrate (Fentanyl 600 Mcg/30 ml TEXTILE SCREEN PRINTER) 30 ml @ 2.5 mls/hr CONT PRN PRN IV IVF Last administered on 01/08/17 12:34; Start 01/08/17 at 12:00 Vecuronium Prince (Norcuron Bolus) 10 mg PRN Q30MIN PRN IV SHIVERING Last administered on 01/08/17 15:54; Start 01/08/17 at 12:00 Meperidine HCl (Demerol) 12.5 mg PRN Q30MIN PRN IV SHIVERING; Start 01/08/17 at 12:00 Multi-Ingred Cream/Lotion/Oil/ Oint (Artificial Tears Eye Oint) 1 mayra PRN Q6HRS PRN OU 0.5 INCH FOR DRY EYE; Start 01/08/17 at 12:00 Famotidine (Pepcid) 20 mg QHS IVP ; Start 01/08/17 at 21:00 Aspirin (Aspirin) 300 mg DAILY NV ; Start 01/08/17 at 12:00 Sodium Chloride (Normal Saline Flush) 3 ml QSHIFT PRN IV AFTER MEDS AND BLOOD DRAWS; Start 01/08/17 at 12:00 Acetaminophen (Tylenol) 650 mg Q6HRS NG ; Start 01/08/17 at 12:00; Stop 01/09/17 at 11:59 Acetaminophen (Tylenol) 650 mg PRN Q6HRS PRN NV MILD PAIN / TEMP; Start at 12:00 Acetaminophen (Tylenol) 650 mg PRN Q6HRS PRN NG MILD PAIN / TEMP; Start at 12:00 Info 1 ea 1 ea DAILY PRN MC PER PROTOCOL; Start 01/10/17 at 12:00 Dextrose 1,000 ml @ 250 mls/hr Q4H IV ; Start 01/08/17 at 12:15 Midazolam HCl (Versed 100mg/ 100ml Premix) 100 ml @ 0 mls/hr CONT PRN IV SEE I/ O RECORD; Start 01/08/17 at 12:45 Sodium Bicarbonate 50 meq 1X ONCE IV ; Start 01/08/17 at 13:15; Stop 01/08/17 at 13:16; Status Cancel Sodium Bicarbonate 150 meq 1X ONCE IV Last administered on 01/08/17 13:51; Start 01/08/17 at 13:15; Stop 01/08/17 at 13:16; Status DC Sodium Bicarbonate 100 meq 1X ONCE IV Last administered on 01/08/17 15:41; Start 01/08/17 at 15:45; Stop 01/08/17 at 15:46; Status DC Sodium Bicarbonate 100 meq 1X ONCE IV Last administered on 01/08/17 15:51; Start 01/08/17 at 16:00; Stop 01/08/17 at 16:01; Status DC Active Scripts Active Reported Zofran Odt (Ondansetron) 4 Mg Tab.rapdis 1 Tab SL Q8HRS Prochlorperazine Maleate 10 Mg Tablet 25 Mg PO Q6HRS Tramadol Hcl 50 Mg Tablet 50 Mg PO Q6H PRN Levothyroxine Sodium 50 Mcg Tablet 50 Mcg PO DAILYAC Pravastatin Sodium 40 Mg Tablet 40 Mg PO DAILY Digoxin 125 Mcg Tablet 1 Tab PO DAILY Laxative Suppository (Bisacodyl) 10 Mg Supp.rect 10 Mg RC DAILY Aspirin Ec (Aspirin) 81 Mg Tablet. 1 Tab PO DAILY Vitals/I & O Vital Sign - Last 24 Hours 01/07/17 01/07/17 01/07/17 01/07/17 19:16 19:46 21:15 21:30 Temp 96.4 96.4 Pulse 98 96 114 Resp 22 B/P 161/96 144/90 151/90 Pulse Ox 92 95 94 O2 Delivery Room Air Room Air Room Air Room Air 01/07/17 01/07/17 01/07/17 01/08/17 22:00 23:00 23:36 00:04 Temp 96.8 96.8 Pulse 89 114 Resp 20 20 B/P 143/93 Pulse Ox 94 92 92 92 O2 Delivery Room Air Room Air Room Air Room Air 01/08/17 01/08/17 01/08/17 01/08/17 03:00 07:00 09:30 09:45 Temp 96.3 97.9 96.3 97.9 Pulse 112 120 150 150 Resp 20 22 B/P 154/96 168/110 66/43 80/45 Pulse Ox 92 95 100 100 O2 Delivery Room Air Room Air Ventilator Ventilator 01/08/17 01/08/17 01/08/17 01/08/17 09:50 10:00 10:15 10:30 Temp 99.0 98.9 99.0 98.9 Pulse 150 150 150 Resp 26 B/P 112/65 109/64 78/51 Pulse Ox 96 100 100 100 O2 Delivery Ventilator Ventilator Ventilator Ventilator 01/08/17 01/08/17 01/08/17 01/08/17 11:00 11:30 12:00 12:13 Temp 98.0 98.0 Pulse 150 152 152 Resp 26 28 28 B/P 87/51 84/51 77/62 Pulse Ox 72 O2 Delivery Ventilator Ventilator Ventilator Ventilator O2 Flow Rate 90.0 90.0 01/08/17 01/08/17 01/08/17 01/08/17 12:15 12:15 12:30 12:34 Temp 98.1 98.1 Pulse 144 152 142 Resp 28 22 B/P 105/64 116/38 Pulse Ox 83 84 O2 Delivery Ventilator Ventilator Ventilator 01/08/17 01/08/17 01/08/17 01/08/17 13:00 13:15 13:30 13:45 Temp 97.0 96.0 97.0 96.0 Pulse 138 144 134 124 B/P 122/44 118/46 96/46 108/54 Pulse Ox 85 O2 Delivery Ventilator Ventilator Ventilator Ventilator 01/08/17 01/08/17 01/08/17 01/08/17 14:00 15:00 15:30 15:49 Temp 95.4 91.0 95.4 91.0 Pulse 120 106 100 B/P 112/58 80/44 78/44 Pulse Ox 78 78 46 O2 Delivery Ventilator Ventilator Ventilator Ventilator 01/08/17 01/08/17 01/08/17 01/08/17 16:00 16:15 16:30 16:45 Temp 91.3 91.3 Pulse 44 36 36 20 B/P 62/34 54/32 46/28 18/14 Pulse Ox 37 25 8 24 O2 Delivery Ventilator Ventilator Ventilator Ventilator 01/08/17 16:57 Pulse 0 B/P 0/0 O2 Delivery Room Air Intake and Output 01/07/17 01/07/17 01/08/17 15:00 23:00 07:00 Intake Total 1000 ml 3650 ml Output Total 0 ml Balance 1000 ml 3650 ml JAJA PRETTY MD Jan 08, 2017 19:12
--- NOTE | 2017-01-08 19:15 | PDOC4 ---
PROCEDURE Procedure Procedure note Procedure: Insertion of arterial line Procedure: With the patient in the ICU and hypotensive after being coated we needed to have monitoring of the blood pressure due to multiple drips. The right antecubital area was prepped and the following that and Artline catheter was inserted with the usual technique over a guidewire. The catheter was connected to the monitoring equipment. The catheter was secured in place and a dressing applied. There was a normal waveform in the monitor. JAJA PRETTY MD Jan 08, 2017 19:15
[2017-01-08] MEDS ORDERED: FAMOTIDINE 20 MG/2 ML VIAL IVP SCH (21:00)
[2017-01-08] MEDS ORDERED: VANCOMYCIN 1.5 GM in IV NORMAL SALINE 500ML BAG 500 ML IV SCH (22:00)
[2017-01-09] MEDS ORDERED: NORMAL SALINE IVP SCH (09:00)
[2017-01-09] MEDS ORDERED: LEVOTHYROXINE SODIUM IVP SCH (09:00)
--- NOTE | 2017-01-09 09:51 | PN ---
DATE: 01/08/2017 ADDENDUM I had a family meeting with the entire family members including daughters, sons and the patient's . SUBJECTIVE: The patient's clinical condition has rapidly deteriorated. He is in full blown ARDS due to massive aspiration with severe hypoxic respiratory failure despite pressure-controlled inverse ratio ventilation and 13 of PEEP and 100% FiO2. His pO2 is only 40. His chest x-ray shows diffuse lung infiltrates without any significant effusion. This is consistent with massive lung injury/ARDS. The patient's blood pressure has dropped down in the 50s and heart rate in the 40s despite 2 pressors. At this point, I discussed with the patient's family that despite all the aggressive and resuscitative efforts, he is not going to survive and coding him again would not be in his best interest. They all agree and they preferred to keep him comfortable and pain free. At this time, I will stop the pressors and take him off the ventilator and keep him comfortable. DNR status will be established. FLORES ANDERSON MD DR: CABRERA/ld JOB#: [id number] / [id number] GABRIEL
--- NOTE | 2017-01-09 09:51 | PN ---
DATE: 01/08/2017 ADDENDUM The patient remains progressively hypoxic and hypotensive along with marked tachycardia with the heart rate in the 150s. His abdomen was very much distended and NG tube was placed and he had at least 4 L of dark green and brownish drainage came out. The patient's abdomen distension did improve. We aggressively hydrated the patient with combination of colloids and crystalloids. We had to start vasopressor as well. The patient's blood pressure started to improve in the one-teens and heart rate started to improve from 150s to 120s. The patient's hemoglobin will be serially checked. It appears to be hypovolemic shock with significant aspiration pneumonia as he was placed on up to 100% oxygen, 10 of PEEP, which did not improve his oxygenation status. I had to increase the respiratory rate as well to 30 to correct his respiratory acidosis. The patient was stacking his breaths as a result he was probably having auto- PEEP and resulting in persistent hypercapnia. At that time, the patient was maximally sedated and also neuromuscular blockade was used on a p.r.n. basis to be able to synchronize his breathing with the ventilator. He was changed to pressure-controlled inverse ratio ventilation, PEEP was increased to 11, and FiO2 was kept at 100%. Another arterial blood gas has been ordered in few hours. I have had a lengthy discussion with the patient's daughters, explained to them the critical illness and we will continue present aggressive care. FLORES ANDERSON MD DR: CABRERA/ld JOB#: [id number] / [id number] GABRIEL
[2017-01-09] MEDS ORDERED: ACETAMINOPHEN 650 MG SUPP.RECT. PR PRN (12:00)
[2017-01-09] MEDS ORDERED: ACETAMINOPHEN 650 MG/20.3 ML SOLUTION. NG PRN (12:00)
--- NOTE | 2017-01-09 12:35 | CONS ---
DATE OF CONSULTATION: 01/08/2017 The patient is in ICU #[id number]. REQUESTING PHYSICIAN: Dr. Bradshaw. REASON FOR CONSULTATION: Leukocytosis, nausea, vomiting. HISTORY OF PRESENT ILLNESS: The patient is a 77-year-old gentleman with a previous history of small bowel obstructions, who presented to [facility] Emergency Room on the 7th secondary to nausea, vomiting, and apparent diarrhea. Also apparently he reported he was feeling weak. He had vomiting that was nonbilious and some cramping. No fevers or chills. Since his admission, he was afebrile. White blood cell count on arrival was 18.8, with 73% neutrophils. Chest x-ray showed no acute or focal process. CT scan of the abdomen and pelvis was performed, which showed findings consistent with small bowel obstruction. He was started on vancomycin and Zosyn. While on the floor, he possibly aspirated some Sprite. He apparently had vomited, but subsequently was found pulseless, not breathing, and copious fluid from his nose and mouth. He was suction bagged, underwent a code procedure, received atropine, compressions, was intubated, had OG tube placed, and transferred to the Intensive Care Unit. Currently, he is intubated and sedated. PAST MEDICAL HISTORY: Positive for morbid obesity, previous small bowel obstructions, coronary artery disease, hypertension, myocardial infarction, constipation. PAST SURGICAL HISTORY: Positive for coronary artery bypass surgery. REVIEW OF SYSTEMS: Unobtainable. ALLERGIES: No known drug allergies. SOCIAL HISTORY: No alcohol or tobacco. FAMILY HISTORY: Unknown. CURRENT MEDICATIONS: Include vancomycin, Zosyn, levothyroxine, Levophed. Other meds are available and reviewed in the chart. PHYSICAL EXAMINATION: VITAL SIGNS: He is afebrile, temperature 97.9, pulse 120, respirations 20, blood pressure 160/110, satting 96% on ventilator. CONSTITUTIONAL: He is intubated, sedated some. Pupils are equal and reactive. NECK: Supple. OG tube was in place. LUNGS: Had some mild crackles. HEART: Tachycardic, S1, S2. ABDOMEN: Distended, decreased bowel sounds. EXTREMITIES: No clubbing or cyanosis. SKIN: Warm to touch without signs of rash. IV sites are clean. He has had a new IJ put on the left side. Dawn is in place. LABORATORY VALUES: White count 16.8, hemoglobin 15.9, platelets of 303, neutrophils 75, lymphs were 11, monos 14. Creatinine on arrival was 2.1, currently at 2.1. Glucose of 190. Lactic acid was recently 5.4. Normal liver function study tests. Urinalysis was clean on the time of presentation. Influenza was negative. RADIOLOGY: Reviewed in the history of present illness. IMPRESSION: 1. Status post code. 2. Acute respiratory failure. Chest x-ray ____ clear, but now likely aspiration. 3. Small bowel obstruction. 4. Acute kidney injury. 5. Leukocytosis, questionable reactive. RECOMMENDATIONS: Vancomycin and Zosyn were started. We will continue these. We will add micafungin. We will follow up on labs and cultures. This was discussed with . ____. Thank you for allowing me to participate in the patient's care. If you have any questions, please do not hesitate to contact me. JENNIFER MACIAS MD DR: CALVIN/ld JOB#: [id number] / [id number]
--- NOTE | 2017-01-10 02:29 | CONS ---
DATE OF CONSULTATION: PRIMARY PHYSICIAN: Dr. Good. REASON FOR CONSULTATION: Acute renal failure, questionable history of CKD [address] Good; however, the patient's previous creatinine appears to be normal. HISTORY OF PRESENT ILLNESS: A 77-year-old gentleman who presented to the ER with nausea, vomiting for the last few days. He reported to the ER that he was feeling generally weak. Blood pressures were elevated at 162/92 at presentation. He underwent CT scan of his abdomen, which showed small-bowel obstruction. He did not have any chest pain, palpitations, shortness of breath as reported in the ER. He was given IV fluids in the ER. His creatinine on presentation was 2.1 with mildly elevated LFTs and a calcium of 10.3. Glucose was mildly elevated also. This morning, the patient was sipping on some Sprite and thereafter was found down. He had complained of back pain and abdominal bloating. He was found pulseless and not breathing. His bed was covered in vomitus and it is felt that he aspirated. He was emergently intubated and brought to the ICU where I was consulted to see the patient. He did receive resuscitation and cardiovascular attention from Dr. Paniagua as well as Dr. Aquino in the ER, intubated the patient. Post-intubation, an NG tube was dropped down ____ and approximately 3-4 liters of what I perceive to be feculent appearing fluid were obtained. He is now being prepared for hypothermia protocol. He is noted to have severe lactic acidosis, severe lactic, metabolic, respiratory acidosis with ABG showing 6.93/69/137 on 100% FiO2 with a bicarb of 14. Further bicarbonate has been ordered and will be administered. As needed, another set of labs will be pending at this time. For rest of the details, please see electronic renal consult note. LUCIA ARANDA MD DR: NARESH/ld JOB#: [id number] / [id number]
--- NOTE | 2017-01-10 09:36 | CONS ---
DATE OF CONSULTATION: 01/08/2017 CHIEF COMPLAINT: Abdominal pain. HISTORY OF PRESENT ILLNESS: The patient is a 77-year-old male who I first became involved in his care after he had sustained a cardiac arrest and underwent code blue resuscitation. When I became involved in his care, he was in the ICU, intubated and without meaningful response and therefore the history is from the chart as well as discussion with the family, but the family was unable to provide detailed history regarding HPI as well as review of systems. The patient is a 77-year-old male whose reports to me he started complaining of diffuse abdominal pain on Friday. It was constant with no known aggravating or relieving factors. It was associated with nausea and vomiting. The pain was worsening in severity and associated with increasing nausea, vomiting and therefore, he was brought to the Emergency Room. I am unable to ascertain the quality or the characteristic of the pain. It is known that an associated factor maybe that he has had previous small bowel obstructions in the past for which he was treated with an NG tube, most recently 12/15/2014, also potential associated factor was that he underwent an abdominal hernia repair with mesh years ago by Dr. Marito Rosa. Apparently this morning, his daughter saw him and he was complaining of pain. She left him and he was otherwise feeling well. His nurse returned for an unknown quantity of time later where he was found in a large pool of vomit and he was apneic and in cardiac arrest. PAST MEDICAL HISTORY: 1. Coronary artery disease. 2. Hypertension. 3. History of myocardial infarction. 4. Obesity. 5. History of hyperlipidemia. PAST SURGICAL HISTORY: 1. Coronary artery bypass grafting. 2. Tonsillectomy. 3. Abdominal hernia repair with mesh. 4. Possible inguinal hernia repair based on previous consult in the chart. MEDICATIONS AT HOME: According to his medication record from home, he was on aspirin, laxatives, digoxin, levothyroxine, Zofran, pravastatin, prochlorperazine and tramadol. ALLERGIES: No known drug allergies. SOCIAL HISTORY: He is a nonsmoker, nondrinker. He is . He has a as well as many supportive family members here presently. FAMILY HISTORY: Noncontributory to this illness. REVIEW OF SYSTEMS: I am unable to definitively obtain review of systems based on the fact that he is currently unresponsive in the ICU, intubated and sedated. What was obtainable was limited in nature and was obtained by his and is as follows: CONSTITUTIONAL: Denies fevers or chills. RESPIRATORY: He had denied cough or shortness of breath other than his baseline. CARDIAC: He had denied recent heart palpitations. He was having a pulling sensation in his chest when he reached behind himself to wipe his bottom. GENITOURINARY: He has nocturia, but no hematuria. MUSCULOSKELETAL: He was complaining of back pain, but no other musculoskeletal symptoms. PHYSICAL EXAMINATION: GENERAL: At the time that I see him, he is status post cardiac arrest. He is on the ventilator. VITAL SIGNS: As follows: There is no temperature currently recorded for him. His pulse at the time that I saw him was 152 with a blood pressure of 84/51. His O2 sat was 90% on 100% FiO2 and 5 of PEEP, intubated on the ventilator. HEENT: His pupils are small and minimally reactive. His eyelids are normal in appearance. Face is somewhat mottled in appearance and he has an endotracheal tube and a securing device with moist mucous membranes. NECK: Supple without cervical lymphadenopathy. No supraclavicular lymphadenopathy. He has a central line in place. CARDIOVASCULAR: Sinus tachycardia. No pedal edema. No murmur auscultated. He has a CABG incision that is visible. RESPIRATORY: He is tachypneic and his lungs are coarse throughout. ABDOMEN: Soft. He is markedly distended, but an NG tube was placed to suction , then as I was seeing him, his abdomen became visibly less distended after evacuation of nearly 4 liters of dark brown fluid from the NG tube, unable to assess tenderness. No incarcerated hernia palpable. PSYCHIATRIC: Unable to assess his mood or affect because of his neurologic status. NEUROLOGIC: He opens his eyes apparently random times. He does not have any meaningful response to commands or to pain at this time. DERMATOLOGIC: Exposed portions of his skin are unremarkable other than being somewhat mottled on his face. LABORATORY DATA: Recent lab is pending, what is currently available shows leukocytosis as of this morning, acidosis, coagulopathy with an INR of 2.2, moderate malnutrition with an albumin of 2.3. Hyponatremia on admission, now resolved; acute renal failure on admission, currently with a creatinine of 2.6. Influenza A and B were negative. CT scan, I have reviewed the report as well as the images. ASSESSMENT: 1. Status post cardiac arrest, presumed massive aspiration. 2. Shock with multisystem organ failure including respiratory failure, cardiac failure and renal failure at this time. 3. Small-bowel obstruction by CT scan. 4. Metabolic acidosis, worsening since his code. 5. Coagulopathy. 6. [id number] malnutrition with albumin of 2.3. 7. Hyponatremia, improved since admission. 8. Coronary artery disease. 9. Morbid obesity with a BMI of 35. PLAN: At this point, I think his acute decline corresponds with his massive vomiting and aspiration and at this point, taking him to the operating room for exploration is not feasible given his hypotension despite being on 20 of Levophed and 7.5 of epi. He is hemodynamically unstable at this time as well as has coagulopathy. I did discuss this with the family as well as Dr. Paniagua and Dr. Canas. Plan will be to provide a maximal medical support correcting his coagulopathy, correcting his acidosis and then reevaluating with time his bowel obstruction seen on CT scan. His bowel obstruction is currently being treated with an NG tube which would be the first line of treatment for bowel obstruction. I think it is reasonable to continue the current course and then reevaluate his need and stability for surgery throughout his hospital stay. In addition, the family does mention that Dr. Rosa has been his surgeon in the past and the patient is very fond of Dr. Rosa. The family would like that he continue seeing the patient and so I will ask Dr. Rosa to assume his surgical care and evaluation tomorrow. CHARLIE BLACKMAN MD DR: ASIA/ld JOB#: [id number] / [id number] GAYE Anderson MD, JAJA RAI, SU RIOS
[2017-01-10] MEDS ORDERED: ELECTROLYTE (ICU) PROTOCOL. MC PRN (12:00)
== END 2017-01-08 16:57 | DRG 208 ==
LOC: ER 18:31 → 5 NORTH 20:13 → OBSVTOIN 20:31 → 1 WEST ICU 01-08 09:50
PROVIDERS: ADMIT Internal Medicine; ATTEND Internal Medicine
PROC: 5A12012 Performance of Cardiac Output, Single, Manual (ICD-10-PCS; 2017-01-07)
PROC: 02HV33Z Insertion of Infusion Device into Superior Vena Cava, Percutaneous Approach (ICD-10-PCS; principal; 2017-01-08)
PROC: 5A1935Z Respiratory Ventilation, Less than 24 Consecutive Hours (ICD-10-PCS; 2017-01-08)
PROC: B548ZZA Ultrasonography of Superior Vena Cava, Guidance (ICD-10-PCS; 2017-01-08)
PROC: 03HY32Z Insertion of Monitoring Device into Upper Artery, Percutaneous Approach (ICD-10-PCS; 2017-01-08)
PROC: 4A133B1 Monitoring of Arterial Pressure, Peripheral, Percutaneous Approach (ICD-10-PCS; 2017-01-08)
PROC: 4A133J1 Monitoring of Arterial Pulse, Peripheral, Percutaneous Approach (ICD-10-PCS; 2017-01-08)
PROC: 0BH17EZ Insertion of Endotracheal Airway into Trachea, Via Natural or Artificial Opening (ICD-10-PCS; 2017-01-08)
DX: J96.01 Acute respiratory failure with hypoxia (principal); J69.0 Pneumonitis due to inhalation of food and vomit; K85.90 Acute pancreatitis without necrosis or infection, unspecified; E43 Unspecified severe protein-calorie malnutrition; D68.9 Coagulation defect, unspecified; E87.2 Acidosis; K56.60 Unspecified intestinal obstruction; N17.9 Acute kidney failure, unspecified; N18.4 Chronic kidney disease, stage 4 (severe); E87.1 Hypo-osmolality and hyponatremia; Z51.5 Encounter for palliative care; Z66 Do not resuscitate; E03.9 Hypothyroidism, unspecified; E66.01 Morbid (severe) obesity due to excess calories; Z68.35 Body mass index [BMI] 35.0-35.9, adult; E78.00 Pure hypercholesterolemia, unspecified; E78.5 Hyperlipidemia, unspecified; I12.9 Hypertensive chronic kidney disease with stage 1 through stage 4 chronic kidney disease, or unspecified chronic kidney disease; I25.10 Atherosclerotic heart disease of native coronary artery without angina pectoris; Z95.1 Presence of aortocoronary bypass graft; I25.2 Old myocardial infarction; R57.1 Hypovolemic shock; I46.9 Cardiac arrest, cause unspecified; J80 Acute respiratory distress syndrome
CPT/HCPCS: 36415; 36556; 36600; 71010; 74176; 76937; 80048; 80053; 80076; 81001; 82150; 82805; 82947; 83605; 83690; 83880; 84100; 84145; 84295; 84443; 84484; 85007; 85027; 85610; 85730; 86850; 86900; 86901; 87040; 87641; 87804; 93005; 93308; 94002; 96374; C1892; G0379; J0171; J0461; J1720; J1815; J2248; J2270; J2405; J2543; J3010; J3370; J7030; J7040; J7050; P9045; 99285-25